=== PATIENT | male | born 1990 | race Caucasian/White ===

== ENCOUNTER 2019-01-14 19:05 | Emergency (ER) | payer OTHER, SELFPAY ==
[~2019-01-14] VITALS: Ht 180.3 cm; Wt 61.4 kg
[2019-01-14] MEDS ORDERED: DOXY100C37 PO (20:54)
[2019-01-14 21:45] VITALS: BP 131/80
== END 2019-01-14 21:46 | disposition home or self-care (01) ==
LOC: M ED 19:05
DX: H60.13 Cellulitis of external ear, bilateral (principal); T16.9XXA Foreign body in ear, unspecified ear, initial encounter; Y92.9 Unspecified place or not applicable; Y93.9 Activity, unspecified; Z72.0 Tobacco use; Z88.2 Allergy status to sulfonamides

== ENCOUNTER 2019-04-07 15:49 | Emergency (ER) | payer SELFPAY ==
[~2019-04-07] VITALS: Ht 180.3 cm; Wt 61.4 kg
[~2019-04-07 15:49] MED LIST: DOXY100C37 PO
[2019-04-07 16:51] LABS: BASO # 0.1 10^3/uL (0.0-0.2); BASO % 0.7 % (0.0-1.0); EOS # 0.2 10^3/uL (0.0-0.50); EOS % 2.5 % (0.0-3.0); HEMATOCRIT 46.9 % (42.0-52.0); HEMOGLOBIN 16.5 g/dl (13.5-17.5); LYMPH # 2.2 10^3/uL (1.5-6.5); LYMPH % 26.7 % (24.0-44.0); MEAN CORPUSCULAR HEMOGLOBIN 32.6 pg (27.0-33.0); MEAN CORPUSCULAR HGB CONC 35.2 g/dl (32.0-36.5); MEAN CORPUSCULAR VOLUME 92.7 fl (80.0-96.0); MONO # 0.6 10^3/uL (0.0-0.8); MONO % 7.7 % (0.0-5.0); PLATELET COUNT, AUTOMATED 233 10^3/uL (150-450); RED BLOOD COUNT 5.06 10^6/uL (4.30-6.10); WHITE BLOOD COUNT 8.1 10^3/uL (4.0-10.0)
[2019-04-07 17:11] LABS: BILIRUBIN,DIRECT 0.3 MG/DL (0.0-0.2); TOTAL PROTEIN 7.5 GM/DL (6.4-8.2)
[2019-04-07] MEDS ORDERED: ISOVUE-370 76% 100ML VIAL (Q9967) As Ordered ONE (17:13)
[2019-04-07] MEDS ORDERED: GI COCKTAIL 50ML BTL(HYOSCYAMINE/MAALOX/LIDOCAINE VISCOUS)(1:3:1) PO ONE (18:00)
--- NOTE | 2019-04-07 18:31 | REPVR ---
EXAM: CT Abdomen and Pelvis With Contrast EXAM DATE/TIME: 04/07/2019 5:29 PM CLINICAL HISTORY: 29 years old, male; Abdominal pain; Generalized; Additional info: Left sided abdominal pain; R/O colitis TECHNIQUE: Imaging protocol: Axial computed tomography images of the abdomen and pelvis with intravenous contrast. Coronal and sagittal reformatted images were created and reviewed. Radiation optimization: All CT scans at this facility use at least one of these dose optimization techniques: automated exposure control; mA and/or kV adjustment per patient size (includes targeted exams where dose is matched to clinical indication); or iterative reconstruction. Contrast material: ISOVUE 370;Contrast volume: 100 ml;Contrast route: IV; COMPARISON: No relevant prior studies available. FINDINGS: Mediastinum: Small hiatal hernia. Liver: Unremarkable. Gallbladder and bile ducts: No radiodense gallstones. No biliary ductal dilatation. Pancreas: Unremarkable. Spleen: Unremarkable. Adrenals: Unremarkable. Kidneys and ureters: No mass. No radiodense calculi. No hydronephrosis. Stomach and bowel: Large duodenal diverticulum. Submucosal fat deposition in the terminal ileum and colon, consistent with chronic inflammation. Mild superimposed bowel wall thickening cannot be excluded. No obstruction. No pneumatosis. Appendix: Normal. Intraperitoneal space: No free fluid. No organized fluid collection. No free air. Vasculature: Unremarkable. No aneurysm. Lymph nodes: Small mesenteric lymph nodes, likely reactive. No pathologically enlarged lymph nodes. Bladder: Unremarkable. Reproductive: Unremarkable. Bones/joints: No acute osseous abnormality. Soft tissues: Bilateral Bochdalek hernias. IMPRESSION: 1. Findings compatible with chronic enterocolitis, as described above. Mild superimposed acute component cannot be excluded. 2. Additional findings, as above. Electronically signed by: Jacob Hardwick On 04/07/2019 18:31:06 PM
[2019-04-07] MEDS ORDERED: PRED10TA2 PO (18:41)
[2019-04-07 18:50] VITALS: BP 137/71
== END 2019-04-07 18:51 | disposition home or self-care (01) ==
LOC: M ED 15:49
DX: K52.9 Noninfective gastroenteritis and colitis, unspecified (principal); Z88.1 Allergy status to other antibiotic agents; Z88.2 Allergy status to sulfonamides; F17.210 Nicotine dependence, cigarettes, uncomplicated
CPT/HCPCS: 36415; 74177; 80047; 80076; 83690; 85025; 99284; Q9967

== ENCOUNTER 2019-06-08 12:22 | Emergency (ER) | payer SELFPAY ==
[~2019-06-08] VITALS: Ht 180.3 cm; Wt 63.2 kg
[~2019-06-08 12:22] MED LIST changes: +PRED10TA2 PO
[2019-06-08 13:55] LABS: INFLUENZA A AMPLIFICATION NEGATIVE (NEGATIVE); INFLUENZA B AMPLIFICATION NEGATIVE (NEGATIVE)
[2019-06-08 14:28] VITALS: BP 131/71
== END 2019-06-08 14:32 | disposition home or self-care (01) ==
LOC: M ED 12:22
DX: J06.9 Acute upper respiratory infection, unspecified (principal); Z88.2 Allergy status to sulfonamides; K50.90 Crohn's disease, unspecified, without complications; F17.200 Nicotine dependence, unspecified, uncomplicated

== ENCOUNTER 2019-11-27 23:04 | Emergency (ER) | payer OTHER, SELFPAY ==
[2019-11-27] MEDS ORDERED: COMBIVENT RESPIMAT 100-20MCG INHALER 4GM INH ONE (23:15)
[2019-11-27 23:24] LABS: VENOUS BASE EXCESS -1.5 (-2.0-2.0); VENOUS HCO3 24.4 MEQ/L (23.0-27.0); VENOUS O2 SATURATION 82.5 % (60.0-80.0); VENOUS PARTIAL PRESSURE CO2 45.5 mmHg (38.0-50.0); VENOUS PARTIAL PRESSURE O2 46.6 mmHg (30.0-50.0); VENOUS PH 7.348 UNITS (7.330-7.430); VENOUS STANDARD HCO3 22.8 MEQ/L; VENOUS TOTAL CO2 25.8 MEQ/L (24.0-28.0)
[2019-11-27 23:29] LABS: BASO # 0.1 10^3/uL (0.0-0.2); BASO % 0.6 % (0.0-1.0); EOS # 0.2 10^3/uL (0.0-0.5); EOS % 1.7 % (0.0-3.0); HEMATOCRIT 49.4 % (42.0-52.0); LYMPH # 1.5 10^3/uL (1.5-5.0); LYMPH % 16.8 % (24.0-44.0); MEAN CORPUSCULAR HEMOGLOBIN 31.9 pg (27.0-33.0); MEAN CORPUSCULAR HGB CONC 34.4 g/dl (32.0-36.5); MEAN CORPUSCULAR VOLUME 92.7 fl (80.0-96.0); MONO # 0.4 10^3/uL (0.0-0.8); NEUTROPHILS # 6.5 10^3/uL (1.5-8.5); NEUTROPHILS % 75.6 % (36.0-66.0); PLATELET COUNT, AUTOMATED 244 10^3/uL (150-450); RED BLOOD COUNT 5.33 10^6/uL (4.30-6.10); WHITE BLOOD COUNT 8.7 10^3/uL (4.0-10.0)
[2019-11-27 23:51] LABS: BLOOD UREA NITROGEN 7 MG/DL (7-18); CALCIUM LEVEL 9.1 MG/DL (8.5-10.1); CARBON DIOXIDE LEVEL 28 MEQ/L (21-32); CHLORIDE LEVEL 106 MEQ/L (98-107); CREATININE FOR GFR 0.86 MG/DL (0.70-1.30); GLOMERULAR FILTRATION RATE > 60.0 (>60); GLUCOSE, FASTING 119 MG/DL (70-100); POTASSIUM SERUM 3.8 MEQ/L (3.5-5.1); SODIUM LEVEL 142 MEQ/L (136-145)
[2019-11-28 00:42] VITALS: BP 109/74
--- NOTE | 2019-11-28 09:14 | REP ---
Clinical: Cough and dyspnea . Comparison: None . Findings: The mediastinum and cardiac silhouette are stable and within normal limits for portable technique. The lung marrero are clear without acute consolidation, effusion, or pneumothorax. Skeletal structures are intact. Impression: No acute cardiopulmonary process appreciated. Electronically Signed by Bharat Burrows MD 11/28/2019 09:06 A
== END 2019-11-28 01:03 | disposition home or self-care (01) ==
LOC: M ED 23:04
DX: B34.9 Viral infection, unspecified (principal); Z88.2 Allergy status to sulfonamides

== ENCOUNTER 2019-12-28 14:49 | Emergency (ER) | payer OTHER ==
[~2019-12-28] VITALS: Ht 180.3 cm; Wt 62.9 kg
[2019-12-28] MEDS ORDERED: NS 1,000 ML IV ONE (15:15)
[2019-12-28 16:55] LABS: BASO # 0.1 10^3/uL (0.0-0.2); BASO % 0.8 % (0.0-1.0); EOS # 0.1 10^3/uL (0.0-0.5); EOS % 1.4 % (0.0-3.0); HEMATOCRIT 41.8 % (42.0-52.0); HEMOGLOBIN 14.4 g/dl (13.5-17.5); LYMPH # 1.3 10^3/uL (1.5-5.0); LYMPH % 19.7 % (24.0-44.0); MEAN CORPUSCULAR HEMOGLOBIN 32.4 pg (27.0-33.0); MEAN CORPUSCULAR HGB CONC 34.4 g/dl (32.0-36.5); MEAN CORPUSCULAR VOLUME 93.9 fl (80.0-96.0); MONO # 0.5 10^3/uL (0.0-0.8); NEUTROPHILS # 4.4 10^3/uL (1.5-8.5); NEUTROPHILS % 69.6 % (36.0-66.0); PLATELET COUNT, AUTOMATED 194 10^3/uL (150-450); RED BLOOD COUNT 4.45 10^6/uL (4.30-6.10); WHITE BLOOD COUNT 6.4 10^3/uL (4.0-10.0)
[2019-12-28 16:56] LABS: ALBUMIN 3.8 GM/DL (3.2-5.2); ALT/SGPT 26 U/L (12-78); BILIRUBIN,DIRECT 0.2 MG/DL (0.0-0.2); BILIRUBIN,TOTAL 0.9 MG/DL (0.2-1.0); BLOOD UREA NITROGEN 13 MG/DL (7-18); CALCIUM LEVEL 8.8 MG/DL (8.5-10.1); CARBON DIOXIDE LEVEL 27 MEQ/L (21-32); CHLORIDE LEVEL 107 MEQ/L (98-107); GLOMERULAR FILTRATION RATE > 60.0 (>60); GLUCOSE, FASTING 86 MG/DL (70-100); SODIUM LEVEL 141 MEQ/L (136-145); THYROID STIMULATING HORMONE 0.979 uIU/ML (0.358-3.740); TOTAL PROTEIN 7.1 GM/DL (6.4-8.2)
[2019-12-28 17:47] VITALS: BP 139/75
--- NOTE | 2019-12-28 22:20 | ECGEPIP ---
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
--- NOTE | 2019-12-29 01:32 | REP ---
CHEST PORTABLE: REASON: Cough and dyspnea. COMPARISON EXAM: 11/27/2019 FINDINGS: The technique utilized in obtaining the radiograph has magnified the cardiac silhouette and accentuated the interstitial markings. The superior mediastinal structures are midline. The cardiac silhouette is unremarkable in size, shape, and position. The diaphragmatic surfaces of the lungs are regular, and the costophrenic angles are clear. The pulmonary marrero are clear. The imaged osseous structures are intact. IMPRESSION: There is no acute cardiopulmonary disease. No significant change from the prior exam. Electronically Signed by Yehuda Sanchez DO 12/29/2019 07:57 A
== END 2019-12-28 17:57 | disposition home or self-care (01) ==
LOC: M ED 14:49
DX: J06.9 Acute upper respiratory infection, unspecified (principal); R50.9 Fever, unspecified; R06.02 Shortness of breath; F17.200 Nicotine dependence, unspecified, uncomplicated; Z88.2 Allergy status to sulfonamides; Z20.828 Contact with and (suspected) exposure to other viral communicable diseases
CPT/HCPCS: 71045; 80048; 80076; 84443; 85025; 87486; 87581; 87633; 87798; 93005; 93041; 94760; 96360; 99284; U0002

== ENCOUNTER 2020-01-23 16:50 | Emergency (ER) | payer OTHER ==
[~2020-01-23] VITALS: Ht 180.3 cm; Wt 61.8 kg
[2020-01-23] MEDS ORDERED: MULTIVITAMIN -ADULT INJECTION 10 ML, THIAMINE INJection 100 MG, FOLIC ACID 1 MG in NS 1... IV ONE (17:30)
[2020-01-23] MEDS ORDERED: PANTOPRAZOLE 40MG VIAL (C9113 PER 1) IV ONE (17:30)
[2020-01-23 17:46] LABS: BASO # 0.1 10^3/uL (0.0-0.2); BASO % 0.6 % (0.0-1.0); EOS # 0.1 10^3/uL (0.0-0.5); EOS % 0.6 % (0.0-3.0); HEMATOCRIT 50.4 % (42.0-52.0); HEMOGLOBIN 17.6 g/dl (13.5-17.5); LYMPH # 1.4 10^3/uL (1.5-5.0); LYMPH % 11.6 % (24.0-44.0); MEAN CORPUSCULAR HEMOGLOBIN 32.4 pg (27.0-33.0); MEAN CORPUSCULAR HGB CONC 34.9 g/dl (32.0-36.5); MEAN CORPUSCULAR VOLUME 92.8 fl (80.0-96.0); MONO # 0.6 10^3/uL (0.0-0.8); MONO % 5.5 % (0.0-5.0); NEUTROPHILS # 9.5 10^3/uL (1.5-8.5); NEUTROPHILS % 81.3 % (36.0-66.0); PLATELET COUNT, AUTOMATED 250 10^3/uL (150-450); RED BLOOD COUNT 5.43 10^6/uL (4.30-6.10); WHITE BLOOD COUNT 11.6 10^3/uL (4.0-10.0)
[2020-01-23 17:59] LABS: INR 1.05; PROTHROMBIN TIME 13.4 SECONDS (11.8-14.0)
[2020-01-23 18:00] LABS: PARTIAL THROMBOPLASTIN TIME 28.8 SECONDS (25.0-38.4)
[2020-01-23 18:18] LABS: ALBUMIN 4.4 GM/DL (3.2-5.2); ALT/SGPT 36 U/L (12-78); BILIRUBIN,DIRECT 0.3 MG/DL (0.0-0.2); BILIRUBIN,TOTAL 1.1 MG/DL (0.2-1.0); CK-MB VALUE MASS < 1.0 NG/ML (<3.6); CPK CREATINE PHOSPHOKINASE 50 U/L (39-308); FREE T4 1.04 NG/DL (0.76-1.46); LIPASE 86 U/L (73-393); TOTAL PROTEIN 8.2 GM/DL (6.4-8.2); TROPONIN I < 0.02 NG/ML (< 0.10)
--- NOTE | 2020-01-23 18:25 | REP ---
Clinical: Acute chest pain . Comparison: 12/28/2019 . Technique: PA and lateral. Findings: The mediastinum and cardiac silhouette are normal. The lung marrero are clear and without acute consolidation, effusion, or pneumothorax. The skeletal structures are intact and normal. Impression: 1. No acute cardiopulmonary process. Electronically Signed by Bharat Burrows MD 01/23/2020 06:17 P
[2020-01-23 18:27] LABS: D-DIMER QUANT < 270 ng/ml (<500)
[2020-01-23] MEDS ORDERED: KETOROLAC 30 MG/ML 1ML VIAL IV ONE (18:45)
[2020-01-23] MEDS ORDERED: IBUP80TA PO (20:14)
[2020-01-23 20:18] VITALS: BP 121/72
--- NOTE | 2020-01-24 08:10 | ECGEPIP ---
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
== END 2020-01-23 20:22 | disposition home or self-care (01) ==
LOC: M ED 16:50
DX: R07.89 Other chest pain (principal); I44.0 Atrioventricular block, first degree; I45.10 Unspecified right bundle-branch block; K50.90 Crohn's disease, unspecified, without complications; Z88.2 Allergy status to sulfonamides; F17.210 Nicotine dependence, cigarettes, uncomplicated
CPT/HCPCS: 71046; 80047; 80076; 82550; 82553; 83690; 84439; 84443; 85025; 85379; 85610; 85730; 93005; 96361; 96374; 96375; 99284; C9113; J1885; J3411

== ENCOUNTER 2020-02-07 15:28 | Emergency (ER) | payer OTHER ==
[~2020-02-07] VITALS: Ht 180.3 cm; Wt 61.4 kg
[~2020-02-07 15:28] MED LIST changes: +IBUP80TA PO
[2020-02-07] MEDS ORDERED: NS 1,000 ML IV ONE (15:45)
--- NOTE | 2020-02-07 16:00 | REP ---
Clinical: Possible acute cerebrovascular accident . Comparison: None. Technique: Axial noncontrast images from the skull base to the vertex with coronal re-formations. Findings: The ventricles, sulci, and cisterns are normal in position and appearance. Agudelo-white differentiation is maintained. No acute intracranial hemorrhage, mass/mass effect, pathology or trauma/injury. No evidence for acute infarction. No extra-axial fluid collection. Calvarium is intact. Paranasal sinuses and mastoid air cells are clear. Impression: Normal noncontrast head CT. No evidence for acute intracranial pathology or trauma/injury. Electronically Signed by Bharat Burrows MD 02/07/2020 03:52 P
[2020-02-07 16:02] VITALS: BP 132/84
[2020-02-07 16:06] LABS: BASO # 0.1 10^3/uL (0.0-0.2); BASO % 0.4 % (0.0-1.0); EOS % 0.1 % (0.0-3.0); HEMATOCRIT 49.8 % (42.0-52.0); HEMOGLOBIN 17.4 g/dl (13.5-17.5); LYMPH # 1.2 10^3/uL (1.5-5.0); LYMPH % 7.8 % (24.0-44.0); MEAN CORPUSCULAR HEMOGLOBIN 32.3 pg (27.0-33.0); MEAN CORPUSCULAR HGB CONC 34.9 g/dl (32.0-36.5); MEAN CORPUSCULAR VOLUME 92.4 fl (80.0-96.0); MONO # 0.5 10^3/uL (0.0-0.8); MONO % 3.6 % (0.0-5.0); NEUTROPHILS # 13.3 10^3/uL (1.5-8.5); NEUTROPHILS % 87.7 % (36.0-66.0); PLATELET COUNT, AUTOMATED 295 10^3/uL (150-450); RED BLOOD COUNT 5.39 10^6/uL (4.30-6.10); WHITE BLOOD COUNT 15.1 10^3/uL (4.0-10.0)
[2020-02-07 16:15] VITALS: BP 127/82
[2020-02-07 16:15] LABS: INR 1.05; PROTHROMBIN TIME 13.4 SECONDS (11.8-14.0)
[2020-02-07 16:16] LABS: PARTIAL THROMBOPLASTIN TIME 31.3 SECONDS (25.0-38.4)
[2020-02-07 16:30] VITALS: BP 123/81
[2020-02-07 16:45] VITALS: BP 124/79
[2020-02-07 16:54] LABS: ACETAMINOPHEN LEVEL < 2.0 UG/ML (10.0-30.0); ALBUMIN 4.2 GM/DL (3.2-5.2); ALT/SGPT 32 U/L (12-78); BILIRUBIN,DIRECT 0.2 MG/DL (0.0-0.2); BILIRUBIN,TOTAL 0.6 MG/DL (0.2-1.0); CK-MB VALUE MASS < 1.0 NG/ML (<3.6); CPK CREATINE PHOSPHOKINASE 152 U/L (39-308); ETHYL ALCOHOL (ETHANOL) < 0.003 % (0.000-0.010); MAGNESIUM LEVEL 1.7 MG/DL (1.8-2.4); MB/CK RELATIVE INDEX 0.66 (< OR =4); SALICYLATE LEVEL < 1.7 MG/DL (5.0-30.0); THYROID STIMULATING HORMONE 0.603 uIU/ML (0.358-3.740); TOTAL PROTEIN 7.7 GM/DL (6.4-8.2); TROPONIN I < 0.02 NG/ML (< 0.10)
[2020-02-07] MEDS ORDERED: MAG SULF 1GM/100ML (MAG RUN) 1 GM in IV 1 EA IV ONE (17:00)
[2020-02-07] MEDS ORDERED: ONDANSETRON 4MG/2ML VIAL As Ordered ONE (17:14)
[2020-02-07] MEDS ORDERED: ONDANSETRON 4MG/2ML VIAL IV ONE (17:15)
[2020-02-07 17:30] LABS: AMPHETAMINES LEVEL URINE NEGATIVE (NEGATIVE); BARBITURATES URINE NEGATIVE (NEGATIVE); BENZODIAZEPINES URINE NEGATIVE (NEGATIVE); CANNABINOIDS URINE NEGATIVE (NEGATIVE); COCAINE METABOLITE URINE POSITIVE (NEGATIVE); METHADONE URINE NEGATIVE (NEGATIVE); OPIATES URINE NEGATIVE (NEGATIVE); PHENCYCLIDINE URINE NEGATIVE (NEGATIVE)
[2020-02-07] MEDS ORDERED: ACETAMINOPHEN TAB 650MG DOSE (2X325MG) PO ONE (17:30)
[2020-02-07] MEDS ORDERED: ESSE250T PO (17:36)
[2020-02-07 18:30] VITALS: BP 117/67
--- NOTE | 2020-02-07 19:20 | ECGEPIP ---
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
--- NOTE | 2020-02-08 13:15 | REP ---
CHEST: REASON: Strokelike symptoms. COMPARISON: Multiple, latest 01/23/2020. Preliminary report given by Dr. Burrows. The technique utilized in obtaining the radiograph has magnified the cardiac silhouette and accentuated the interstitial markings. FINDINGS: The superior mediastinal structures are midline. The cardiac silhouette is unremarkable in size, shape, and position. The diaphragmatic surfaces of the lungs are regular, and the costophrenic angles are clear. The pulmonary marrero are clear. The imaged osseous structures are intact. IMPRESSION: There is no acute cardiopulmonary disease. Electronically Signed by Yehuda Sanchez DO 02/08/2020 03:18 P
== END 2020-02-07 18:43 | disposition home or self-care (01) ==
LOC: M ED 15:28 → EDBD 15:28 → M ED 18:43
DX: R20.2 Paresthesia of skin (principal); E83.42 Hypomagnesemia; M19.011 Primary osteoarthritis, right shoulder; F17.200 Nicotine dependence, unspecified, uncomplicated; F19.10 Other psychoactive substance abuse, uncomplicated
CPT/HCPCS: 36415; 70450; 71045; 80047; 80076; 80307; 82330; 82550; 82553; 83735; 84443; 85025; 85610; 85730; 86850; 86900; 86901; 93005; 93041; 94760; 96361; 96365; 96366; 96375; 99285; G0480; J2405; J3475

== ENCOUNTER → 2020-04-07 | Emergency (ER) | payer OTHER ==
[~2020-04-07] MED LIST changes: +ESSE250T PO
[2020-05-06 22:45] LABS: BASO % 0.4 % (0.0-1.0); EOS # 0.1 10^3/uL (0.0-0.5); EOS % 0.5 % (0.0-3.0); HEMATOCRIT 52.8 % (42.0-52.0); HEMOGLOBIN 18.1 g/dl (13.5-17.5); LYMPH # 1.9 10^3/uL (1.5-5.0); MEAN CORPUSCULAR HEMOGLOBIN 32.6 pg (27.0-33.0); MEAN CORPUSCULAR HGB CONC 34.3 g/dl (32.0-36.5); MEAN CORPUSCULAR VOLUME 95.1 fl (80.0-96.0); MONO # 0.6 10^3/uL (0.0-0.8); MONO % 5.4 % (0.0-5.0); NEUTROPHILS # 7.8 10^3/uL (1.5-8.5); NEUTROPHILS % 75.3 % (36.0-66.0); PLATELET COUNT, AUTOMATED 265 10^3/uL (150-450); RED BLOOD COUNT 5.55 10^6/uL (4.30-6.10); WHITE BLOOD COUNT 10.4 10^3/uL (4.0-10.0)
--- NOTE | 2020-05-18 11:18 | ECGEPIP ---
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
[2020-05-21 19:06] LABS: ALBUMIN 4.5 GM/DL (3.2-5.2); ALT/SGPT 24 U/L (12-78); BILIRUBIN,DIRECT 0.2 MG/DL (0.0-0.2); BILIRUBIN,TOTAL 0.6 MG/DL (0.2-1.0); BLOOD UREA NITROGEN 8 MG/DL (7-18); CALCIUM LEVEL 9.4 MG/DL (8.5-10.1); CARBON DIOXIDE LEVEL 31 MEQ/L (21-32); CHLORIDE LEVEL 107 MEQ/L (98-107); CK-MB VALUE MASS < 1.0 NG/ML (<3.6); CPK CREATINE PHOSPHOKINASE 69 U/L (39-308); CREATININE FOR GFR 0.87 MG/DL (0.70-1.30); FREE T4 1.13 NG/DL (0.76-1.46); GLOMERULAR FILTRATION RATE > 60.0 (>60); GLUCOSE, FASTING 92 MG/DL (70-100); LIPASE 98 U/L (73-393); MB/CK RELATIVE INDEX 1.45 (< OR =4); POTASSIUM SERUM 4.4 MEQ/L (3.5-5.1); SODIUM LEVEL 142 MEQ/L (136-145); THYROID STIMULATING HORMONE 0.679 uIU/ML (0.358-3.740); TOTAL PROTEIN 8.1 GM/DL (6.4-8.2); TROPONIN I < 0.02 NG/ML (< 0.10)
== END | disposition home or self-care (01) ==
LOC: M ED 11:53
DX: R07.9 Chest pain, unspecified (principal); R11.0 Nausea; R05 Cough; Z53.20 Procedure and treatment not carried out because of patient's decision for unspecified reasons; F17.210 Nicotine dependence, cigarettes, uncomplicated; Z88.2 Allergy status to sulfonamides

== ENCOUNTER → 2020-05-19 | Outpatient (REF) | payer OTHER | LOC: M LAB REF 21:52 | PROVIDERS: ATTEND Physician Assistant | DX: Z20.828 Contact with and (suspected) exposure to other viral communicable diseases (principal) ==

== ENCOUNTER 2020-05-21 08:38 | Emergency (ER) | payer OTHER ==
[~2020-05-21] VITALS: Ht 182.9 cm; Wt 59.3 kg
[2020-05-21] MEDS ORDERED: NS 1,000 ML IV ONE (09:30)
[2020-05-21] MEDS ORDERED: ACETAMINOPHEN 500 MG TAB PO ONE (09:30)
[2020-05-21] MEDS ORDERED: KETOROLAC 30 MG/ML 1ML VIAL IV ONE (09:30)
[2020-05-21] MEDS ORDERED: METOCLOPRAMIDE INJ 10MG/2ML VIAL (J2765 PER 1) IV ONE (09:30)
[2020-05-21 09:41] VITALS: BP 116/68
== END 2020-05-21 11:13 | disposition home or self-care (01) ==
LOC: M ED 08:38
DX: B34.9 Viral infection, unspecified (principal); F17.200 Nicotine dependence, unspecified, uncomplicated; Z88.2 Allergy status to sulfonamides
CPT/HCPCS: 96361; 96374; 96375; 99284; J1885; J2765

== ENCOUNTER 2020-10-25 13:52 | Emergency (ER) | payer OTHER ==
[~2020-10-25] VITALS: Ht 180.3 cm; Wt 59.5 kg
--- OUTSIDE RECORDS SUMMARY | 2020-10-25 14:05 | CCD ---
Author Author [facility] Organization [facility] Address Unknown Phone Unavailable Care Team Providers Care Seismograph Computer Name Role Phone Barraclough, Vinita PA Unavailable Unavailable Barraclough, Vinita PA Unavailable Unavailable Barraclough, Vinita PA Unavailable Unavailable Barraclough, Vinita PA Unavailable Unavailable Barraclough, Vinita PA Unavailable Unavailable Barraclough, Vinita PA Unavailable Unavailable TONTARSKI, G RAJANI PA Unavailable Unavailable TONTARSKI, G RAJANI PA Unavailable Unavailable TONTARSKI, G RAJANI PA Unavailable Unavailable TONTARSKI, G RAJANI PA Unavailable Unavailable TONTARSKI, G RAJANI PA Unavailable Unavailable TONTARSKI, G RAJANI PA Unavailable Unavailable TONTARSKI, G RAJANI PA Unavailable Unavailable TONTARSKI, G RAJANI PA Unavailable Unavailable TONTARSKI, G RAJANI PA Unavailable Unavailable TONTARSKI, G RAJANI PA Unavailable Unavailable TONTARSKI, G RAJANI PA Unavailable Unavailable TONTARSKI, G RAJANI PA Unavailable Unavailable TONTARSKI, G RAJANI PA Unavailable Unavailable TONTARSKI, G RAJANI PA Unavailable Unavailable TONTARSKI, G RAJANI PA Unavailable Unavailable TONTARSKI, G RAJANI PA Unavailable Unavailable TONTARSKI, G RAJANI PA Unavailable Unavailable TONTARSKI, G RAJANI PA Unavailable Unavailable TONTARSKI, G RAJANI PA Unavailable Unavailable TONTARSKI, G RAJANI PA Unavailable Unavailable TONTARSKI, G RAJANI PA Unavailable Unavailable TONTARSKI, G RAJANI PA Unavailable Unavailable TONTARSKI, G RAJANI PA Unavailable Unavailable TONTARSKI, G RAJANI PA Unavailable Unavailable TONTARSKI, G RAJANI PA Unavailable Unavailable TONTARSKI, G RAJANI PA Unavailable Unavailable TONTARSKI, G RAJANI PA Unavailable Unavailable TONTARSKI, G RAJANI PA Unavailable Unavailable TONTARSKI, G RAJANI PA Unavailable Unavailable TONTARSKI, G RAJANI PA Unavailable Unavailable TONTARSKI, G RAJANI PA Unavailable Unavailable TONTARSKI, G RAJANI PA Unavailable Unavailable TONTARSKI, G RAJANI PA Unavailable Unavailable TONTARSKI, G RAJANI PA Unavailable Unavailable TONTARSKI, G RAJANI PA Unavailable Unavailable TONTARSKI, G RAJANI PA Unavailable Unavailable TONTARSKI, G RAJANI PA Unavailable Unavailable TONTARSKI, G RAJANI PA Unavailable Unavailable TONTARSKI, G RAJANI PA Unavailable Unavailable TONTARSKI, G RAJANI PA Unavailable Unavailable TONTARSKI, G RAJANI PA Unavailable Unavailable TONTARSKI, G RAJANI PA Unavailable Unavailable TONTARSKI, G RAJANI PA Unavailable Unavailable TONTARSKI, G RAJANI PA Unavailable Unavailable TONTARSKI, G RAJANI PA Unavailable Unavailable TONTARSKI, G RAJANI PA Unavailable Unavailable TONTARSKI, G RAJANI PA Unavailable Unavailable TONTARSKI, G RAJANI PA Unavailable Unavailable Re-disclosure Warning The records that you are about to access may contain information from federally-assisted alcohol or drug abuse programs. If such information is present, then the following federally mandated warning applies: This information has been disclosed to you from records protected by federal confidentiality rules (42 CFR part 2). The federal rules prohibit you from making any further disclosure of this information unless further disclosure is expressly permitted by the written consent of the person to whom it pertains or as otherwise permitted by 42 CFR part 2. A general authorization for the release of medical or other information is NOT sufficient for this purpose. The Federal rules restrict any use of the information to criminally investigate or prosecute any alcohol or drug abuse patient.The records that you are about to access may contain highly sensitive health information, the redisclosure of which is protected by Article 27-F of the [facility] Public Health law. If you continue you may have access to information: Regarding HIV / AIDS; Provided by facilities licensed or operated by the [facility] Office of Mental Health; or Provided by the [facility] Office for People With Developmental Disabilities. If such information is present, then the following [facility] mandated warning applies: This information has been disclosed to you from confidential records which are protected by state law. State law prohibits you from making any further disclosure of this information without the specific written consent of the person to whom it pertains, or as otherwise permitted by law. Any unauthorized further disclosure in violation of state law may result in a fine or senior care sentence or both. A general authorization for the release of medical or other information is NOT sufficient authorization for further disc losure. Family History Family Member Name Family Member Gender Family Member Status Date o f Status Description Data Source(s) Unknown Female Problem [facility] ([facility]) Encounters Encounter Providers Location Date Indications Data Source(s ) Outpatient Attender: Vinita Cuba ce 06/09/2020 01:00:00 PM EDT [facility] ([facility] Outpatient Attender: Vinita ambrose 05/26/2020 02:00:00 PM EDT [facility] ([facility] Outpatient Referrer: RAJANI VANG 02/25/2020 05: 55:00 AM EDT [facility] Outpatient Referrer: RAJANI VANG 2020 05: 18:00 AM EDT [facility] Outpatient Referrer: RAJANI VANG 01/13/2020 05: 51:00 AM EDT [facility] Outpatient Attender: Vinita Cuba ce 11/16/2019 02:00:00 PM EDT [facility] ([facility] Medications Medication Brand Name Start Date Product Form Dose Route Admi nistrative Instructions Pharmacy Instructions Status Indications Reaction Description Data Source(s) Omeprazole 40 MG Delayed Release Oral Capsule Omeprazole 06/09/2020 12:00:00 AM EDT ORAL active [facility] ([facility] 100,000 unit/mL 05/26/2020 12:00:00 AM EDT suspension 60 SWISH 5ML BY MOUTH FOR LONG POSSIBLE THEN SWALLOW - REPEAT FOUR TIMES A DAY FOR 7 DAYS SWISH 5ML BY MOUTH FOR LONG POSSIBLE THEN SWALLOW - REPEAT FOUR TIMES A DAY FOR 7 DAYS SOLD: 05/26/2020 [facility] Nystatin 904651 UNT/ML Oral Suspension Nystatin 05/26/2020 12:00:00 AM EDT completed [facility] ([facility] 100,000 unit/mL 05/26/2020 12:00:00 AM EDT suspension 80 SWISH 5ML BY MOUTH FOR LONG POSSIBLE THEN SWALLOW - REPEAT FOUR TIMES A DAY FOR 7 DAYS SWISH 5ML BY MOUTH FOR LONG POSSIBLE THEN SWALLOW - REPEAT FOUR TIMES A DAY FOR 7 DAYS SOLD: 05/30/2020 [facility] 800 mg 05/20/2020 12:00:00 AM EDT tablet 30 TAKE ONE TABLET BY MOUTH THREE TIMES A DAY FOR 10 DAYS TAKE ONE TABLET BY MOUTH THREE TIMES A DAY FOR 10 DAYS SOLD: 05/22/2020 [facility] meloxicam 7.5 MG Oral Tablet MELOXICAM 02/11/2020 12:00:00 AM EDT tabl et 30 TAKE ONE TABLET BY MOUTH TWICE A DAY TAKE ONE TABLET BY MOUTH TWICE A DAY SOLD: 02/12/2020 [facility] 800 mg 01/24/2020 12:00:00 AM EDT tablet 30 TAKE ONE TABLET BY MOUTH THREE TIMES A DAY TAKE ONE TABLET BY MOUTH THREE TIMES A DAY SOLD: 01/24/2020 [facility] 300 mg 11/30/2019 12:00:00 AM EDT capsule 20 TAKE ONE CAPSULE BY MOUTH EVERY 12 HOURS FOR 10 DAYS TAKE ONE CAPSULE BY MOUTH EVERY 12 HOURS FOR 10 DAYS S OLD: 11/30/2019 [facility] 40 mg 11/17/2019 12:00:00 AM EDT capsule,delayed release (DR/EC) 30 TAKE 1 CAPSULE BY MOUTH ONCE DAILY TAKE 1 CAPSULE BY MOUTH ONCE DAILY SOLD: 11/17/2019 [facility] 500 mg 11/07/2019 12:00:00 AM EST tablet 20 TAKE ONE TABLET BY MOUTH EVERY 12 HOURS NEEDED FOR 10 DAYS TAKE ONE TABLET BY MOUTH EVERY 12 HOURS NEEDED FOR 10 DAYS SOLD: 11/07/2019 [facility] 10 mg 11/07/2019 12:00:00 AM EST tablet 14 TAKE ONE TABLET BY MOUTH TWO TIMES A DAY NEEDED FOR 7 DAYS TAKE ONE TABLET BY MOUTH TWO TIMES A DAY NEEDED FOR 7 DAYS SOLD: 11/07/2019 [facility] Insurance Providers Payer name Policy type / Coverage type Policy ID Covered green party ID Covered green party's relationship to xiao Policy Xiao Plan Information [facility] COMMUNITY PLAN [facility] [id number] SP [id number] [facility](MCAID) O [id number] S [id number] [facility] COMMUNITY PLAN [facility] [id number] SP [id number] SELF PAY ONLY [id number] SP [id number] [facility] COMMUNITY PLAN XIX [id number] [facility] COMMUNITY PLAN [facility] [id number] SP [id number] [facility] Community Plan Commercial [id number] Self [id number] [place] Medig[place] Part B Self [facility] Community Plan Commercial Self [facility](MCAID) O [id number] S [id number] [facility] [id number] SP [id number] MEDICAID UNAVAILABLE UNAVAILA BLE [facility] COMMUNITY PLAN [facility] [id number] SP [id number] MEDICAID [id number] SP [id number] SELF PAY UNAVAILABLE SP UNAVAILA BLE Problems, Conditions, and Diagnoses Code Display Name Description Problem Type Effective Dates Data Source(s) [id number] Gastroesophageal reflux disease Gastroesophageal reflux disease Problem 11/19/2019 12:00:00 AM EDT [facility] Results ID Date Data Source [id number] 06/09/2020 01:25:00 PM EDT [facility] Name Value Range Interpretation Code Description Data Mandie rce(s) Supporting Document(s) Gamma glutamyl transferase [Enzymatic activity/volume] in Serum or Plasma 102 IU/L 0-65 Above high normal [facility] ([facility] ID Date Data Source [id number] 06/09/2020 01:25:00 PM EDT [facility] ([facility] Name Value Range Interpretation Code Description Data Mandie rce(s) Supporting Document(s) Hepatitis A virus IgM Ab [Presence] in Serum or Plasma by Immunoassay Laboratory test result [facility] ([facility] Hep B Core Ab, IgM Laboratory test result [facility] ([facility] Hepatitis C virus Ab Signal/Cutoff in Serum or Plasma by Immunoassay Laboratory test result 0.0-0.9 [facility] ([facility] <content>Negative: < 0.8</content><b r/><content>Indeterminate: 0.8 - 0.9</content>
<content>Positive: > 0.9</content>
<content>The CDC recommends that a positive HCV antibody result</content>
<content>be followed up with a HCV Nucleic Acid Amplification</content>
<content>test ([id number]).</content>
<content></content> Hepatitis B virus surface Ag [Presence] in Serum or Pl asma by Immunoassay Laboratory test result [facility] (On [facility] of [facility] ID Date Data Source [id number] 05/26/2020 02:35:00 PM EDT [facility] ([facility] Name Value Range Interpretation Code Description Data Mandie rce(s) Supporting Document(s) Written Authorization Laboratory test result [facility] ([facility] No Written Authorization Received. Request Problem Laboratory test result [facility] ([facility] We have received your request for additi onal testing, however we are unable to add the test you requested. The following test(s) were not performed: Quantity was not sufficient for analysis. TEST: [id number] Hepatitis Panel (4) ID Date Data Source [id number] 05/26/2020 02:35:00 PM EDT [facility] ([facility] Name Value Range Interpretation Code Description Data Mandie rce(s) Supporting Document(s) Hepatitis A virus IgM Ab [Presence] in Serum or Plasma by Immunoassay Laboratory test result [facility] ([facility] We have received your request for additi onal testing, however we are unable to add the test you requested. The following test(s) were not performed: Quantity was not sufficient for analysis. Hepatitis B virus surface Ag [Presence] in Serum or Pl asma by Immunoassay Laboratory test result [facility] ([facility] Test not performed Hep B Core Ab, IgM Laboratory test result [facility] ([facility] Test not performed Hepatitis C virus Ab Signal/Cutoff in Serum or Plasma by Immunoassay Laboratory test result [facility] ([facility] Test not performed ID Date Data Source [id number] 05/26/2020 02:35:00 PM EDT [facility] ([facility] Name Value Range Interpretation Code Description Data Mandie rce(s) Supporting Document(s) Bilirubin.conjugated [Mass/volume] in Serum or Plasma 0.35 mg/dL 0.00 -0.40 [facility] ([facility] ID Date Data Source [id number] 05/26/2020 02:35:00 PM EDT [facility] ([facility] Name Value Range Interpretation Code Description Data Mandie rce(s) Supporting Document(s) BUN 14 mg/dL 6-20 [facility] ([facility] Glucose [Mass/volume] in Serum or Plasma 121 mg/dL 65-99 Above high normal [facility] ([facility] Creatinine [Mass/volume] in Serum or Plasma 0.85 mg/dL 0.76-1.27 [facility] ([facility] eGFR If NonAfricn Am 119 mL/min/1.73 [facility] ([facility] Sodium [Moles/volume] in Serum or Plasma 140 mmol/L 134-144 [facility] ([facility] Urea nitrogen/Creatinine [Mass Ratio] in Serum or Plasma 16 9 -20 [facility] ([facility] eGFR If Africn Am 137 mL/min/1.73 ME DENT ([facility] Chloride [Moles/volume] in Serum or Plasma 98 mmol/L 96-106 [facility] ([facility] Carbon dioxide, total [Moles/volume] in Serum or Plasma 28 mmol/L 20 -29 [facility] ([facility] Calcium [Mass/volume] in Serum or Plasma 9.0 mg/dL 8.7-10.2 [facility] ([facility] Potassium [Moles/volume] in Serum or Plasma 4.1 mmol/L 3.5-5.2 [facility] ([facility] Globulin [Mass/volume] in Serum by calculation 3.3 g/dL 1.5-4.5 [facility] ([facility] Albumin [Mass/volume] in Serum or Plasma 4.0 g/dL 4.1-5.2 Below low normal [facility] ([facility] Protein [Mass/volume] in Serum or Plasma 7.3 g/dL 6.0-8.5 [facility] ([facility] Alkaline phosphatase [Enzymatic activity/volume] in Serum or Plasma 553 IU/L 39-117 Above high normal [facility] ([facility] Bilirubin.total [Mass/volume] in Serum or Plasma 0.5 mg/dL 0.0-1.2 [facility] ([facility] Albumin/Globulin [Mass Ratio] in Serum or Plasma 1.2 1.2-2.2 [facility] ([facility] Aspartate aminotransferase [Enzymatic activity/volume] in Serum or Plasma 209 IU/L 0-40 Above high normal [facility] ([facility] Alanine aminotransferase [Enzymatic activity/volume] i n Serum or Plasma 312 IU/L 0-44 Above high normal [facility] ([facility] ID Date Data Source [id number] 05/26/2020 02:35:00 PM EDT [facility] ([facility] [place] [place] [facility] Name Value Range Interpretation Code Description Data Mandie rce(s) Supporting Document(s) Leukocytes [#/volume] in Blood by Automated count 9.3 x10E3/uL 3.4-10 .8 [facility] ([facility] Erythrocytes [#/volume] in Blood by Automated count 4.38 x10E6/uL 4.1 4-5.80 [facility] ([facility] Hemoglobin [Mass/volume] in Blood 14.1 g/dL 13.0-17.7 [facility] ([facility] Hematocrit [Volume Fraction] of Blood by Automated count 41.4 % 3 7.5-51.0 [facility] ([facility] Erythrocyte mean corpuscular hemoglobin concentration [Mass/volume] by Automated count 34.1 g/dL 31.5-35.7 [facility] ([facility] Erythrocyte mean corpuscular volume [Entitic volume] by Auto mated count 95 fL 79-97 [facility] ([facility] Erythrocyte mean corpuscular hemoglobin [Entitic mass] by Automated count 32.2 pg 26.6-33.0 [facility] ([facility] Erythrocyte distribution width [Ratio] by Automated count 14.0 % 11.6-15.4 [facility] ([facility] Lymphs 47 % [facility] Lymphocytes appear reactive. Neutrophils 41 % [facility] ([facility] Platelets [#/volume] in Blood by Automated count 242 x10E3/uL 150-450 [facility] ([facility] Monocytes/100 leukocytes in Blood by Automated count 10 % [facility] ([facility] Eosinophils/100 leukocytes in Blood by Automated count 0 % [facility] ([facility] Basophils/100 leukocytes in Blood by Automated count 1 % [facility] ([facility] Immature cells [#/volume] in Blood Laboratory test result [facility] ([facility] Neutrophils [#/volume] in Blood by Automated count 3.8 x10E3/uL 1.4-7 .0 [facility] ([facility] Eosinophils [#/volume] in Blood by Automated count 0.0 x10E3/uL 0.0-0 .4 [facility] ([facility] Lymphocytes [#/volume] in Blood 4.4 x10E3/uL 0.7-3.1 Above high no rmal [facility] ([facility] Monocytes [#/volume] in Blood 0.9 x10E3/uL 0.1-0.9 [facility] ([facility] Basophils [#/volume] in Blood by Automated count 0.1 x10E3/uL 0.0-0.2 [facility] ([facility] Immature granulocytes [#/volume] in Blood by Automated count 0.1 x10E3/uL 0.0-0.1 [facility] ([facility] Immature granulocytes/100 leukocytes in Blood by Automated count 1 % [facility] ([facility] Nucleated erythrocytes/100 leukocytes [Ratio] in Blood by Automated count Laboratory test result [facility] ([facility] Morphology [Interpretation] in Blood Narrative Laboratory test result [facility] ([facility] Verified by microscopic examination. ID Date Data Source [id number] 05/26/2020 02:35:00 PM EDT [facility] ([facility] [place] [place] [facility] Name Value Range Interpretation Code Description Data Mandie rce(s) Supporting Document(s) Request Problem Laboratory test result [facility] ([facility] We have received your request for additi onal testing, however we are unable to add the test you requested. The following test(s) were not performed: Quantity was not sufficient for analysis. TEST: [id number] Hepatitis Panel (4) ID Date Data Source [id number] 05/26/2020 02:34:00 PM EDT [facility] ([facility] Name Value Range Interpretation Code Description Data Mandie rce(s) Supporting Document(s) Color Urine Laboratory test result M EDENT ([facility] Appearance of Urine Laboratory test result [facility] ([facility] Specific Walls 1.030 1.00-1.03 [facility] ([facility] [place] [place] [facility] Bilirubin.total [Presence] in Urine by Test strip Laboratory stefania t result Above high normal [facility] ([facility] ) Ketones Laboratory test result Above high normal [facility] ([facility] Glucose Urine Laboratory test result [facility] ([facility] PH Urine 6.0 5.0-8.0 [facility] ([facility] Blood Urine Laboratory test result M EDENT ([facility] Protein Urine Laboratory test result Above high normal [facility] ([facility] Nitrite Laboratory test result [facility] ([facility] Leukocytes Laboratory test result ME DENT ([facility] Urobilinogen 2.0 EU/dl 0.2-1.0 Above high normal MEDEN T ([facility] ID Date Data Source [id number] 02/07/2020 04:58:00 PM EDT [facility] ([facility] Name Value Range Interpretation Code Description Data Mandie rce(s) Supporting Document(s) Amphetamines Level Urine Laboratory test result Normal (applies to non-numeric results) [facility] ([facility] ) Cannabinoids Urine Laboratory test result Normal (applies to non-numeric results) [facility] ([facility] ) Benzodiazepines Urine Laboratory test result Nor mal (applies to non-numeric results) [facility] ([facility] ) Barbiturates Urine Laboratory test result Normal (applies to non-numeric results) [facility] ([facility] ) Methadone Urine Laboratory test result Normal (a pplies to non-numeric results) [facility] ([facility] ) Opiates Urine Laboratory test result Normal (applies t o non-numeric results) [facility] ([facility] Cocaine Metabolite Urine Laboratory test result Above high normal [facility] ([facility] Phencyclidine Urine Laboratory test result Marie l (applies to non-numeric results) [facility] ([facility] ALL PRESUMPTIVE POSITIVE FINDINGS AR E UNCONFIRMED THRESHOLD IN NG/ML AMPHETAMINES/METHAMPHET 1000 BARBITURATES 200 BENZODIAZEPINES 200 CANNABINOIDS (THC) 50 COCAINE METABOLITE 300 METHADONE 300 OPIATES 300 PHENCYCLIDINE 25 RESULTS ARE FOR MEDICAL PURPOSES ONLY. ALL URINE SPECIMENS WILL BE SAVED FOR 3 DAYS. IF CONFIRMATION OF A PRESUMPTIVE POSITIVE SCREEN RESULT IS DESIRED, CALL CHEMISTRY ([phone]) AND REQUEST URINE TO BE SENT TO REFERENCE LAB. FOR A LIST OF CLOSELY RELATED COMPOUNDS PLEASE CALL THE LAB. ID Date Data Source [id number] 02/07/2020 04:12:00 PM EDT [facility] Name Value Range Interpretation Code Description Data Mandie rce(s) Supporting Document(s) Glucose [Mass/volume] in Capillary blood by Glucometer 78 mg/dL 70-105 Normal (applies to non-numeric results) [facility] ID Date Data Source [id number] 02/07/2020 04:11:00 PM EDT [facility] ([facility] Name Value Range Interpretation Code Description Data Mandie rce(s) Supporting Document(s) Laboratory test finding (navigational concept) 52.0 % 3 8.0-51.0 Above high normal [facility] ([facility] Laboratory test finding (navigational concept) 92 mg/dL 7 0-105 Normal (applies to non-numeric results) [facility] ([facility] Laboratory test finding (navigational concept) 141 meq/L 1 36-145 Normal (applies to non-numeric results) [facility] ([facility] Laboratory test finding (navigational concept) 3.6 meq/L 3 .5-5.1 Normal (applies to non-numeric results) [facility] ([facility] Laboratory test finding (navigational concept) 4.3 mg/dL 4 .5-5.3 Below low normal [facility] ([facility] ) Laboratory test finding (navigational concept) 101 meq/L 9 8-109 Normal (applies to non-numeric results) [facility] ([facility] Laboratory test finding (navigational concept) 26.0 MM/L 2 3.0-27.0 Normal (applies to non-numeric results) [facility] Laboratory test finding (navigational concept) 0.7 mg/dL 0 .6-1.3 Normal (applies to non-numeric results) [facility] ([facility] Laboratory test finding (navigational concept) 10 mg/dL 8 -26 Normal (applies to non-numeric results) [facility] ([facility]) ID Date Data Source [id number] 02/07/2020 03:59:00 PM EDT [facility] ([facility] Name Value Range Interpretation Code Description Data Mandie rce(s) Supporting Document(s) Troponin I.cardiac [Mass/volume] in Serum or Plasma Laboratory test result [facility] ([facility] Laboratory test finding (navigational concept) 0.00 ng/mL 0 .00-0.08 Normal (applies to non-numeric results) [facility] ([facility] ID Date Data Source [id number] 02/07/2020 03:46:00 PM EDT [facility] ([facility] Name Value Range Interpretation Code Description Data Mandie rce(s) Supporting Document(s) Calcium.ionized [Mass/volume] in Serum o r Plasma by Ion-selective membrane electrode (ISE) 4.3 mg/dL 4.5-5.3 Below low normal [facility] ( [facility] ID Date Data Source [id number] 02/07/2020 03:46:00 PM EDT [facility] ([facility] Name Value Range Interpretation Code Description Data Mandie rce(s) Supporting Document(s) Blood Type Laboratory test result Normal (applies to non-n umeric results) [facility] ([facility] AB Screen (Indirect Fariba)Vis Laboratory test result Normal (applies to non- numeric results) [facility] ([facility] ) ID Date Data Source [id number] 02/07/2020 03:35:00 PM EDT [facility] ([facility] Name Value Range Interpretation Code Description Data Mandie rce(s) Supporting Document(s) Red Blood Count 5.39 10 4.30-6.10 Normal (applies to non-numeric results) [facility] ([facility] White Blood Count 15.1 10 4.0-10.0 Above high normal [facility] ([facility] Mean Corpuscular Hemoglobin 32.3 pg 27.0-33.0 Norm al (applies to non-numeric results) [facility] ([facility] ) Hemoglobin 17.4 g/dL 13.5-17.5 Normal (applies to non-numeric resul ts) [facility] ([facility] Mean Corpuscular Volume 92.4 fl 80.0-96.0 Normal ( applies to non-numeric results) [facility] ([facility] ) Hematocrit 49.8 % 42.0-52.0 Normal (applies to non-numeric resul ts) [facility] ([facility] Red Cell Distribution Width 12.8 % 11.5-14.5 Norm al (applies to non-numeric results) [facility] ([facility] ) Platelet Count, Automated 295 10 150-450 Normal (applies to non-numeric results) [facility] ([facility] ) Mean Corpuscular HGB Conc 34.9 g/dL 32.0-36.5 Normal (applies to non-numeric results) [facility] ([facility] ) Neutrophils % 87.7 % 36.0-66.0 Above high normal [facility] ([facility] Duval % 3.6 % 0.0-5.0 Normal (applies to non-numeric resul ts) [facility] ([facility] Lymph % 7.8 % 24.0-44.0 Below low normal [facility] ( [facility] Baso % 0.4 % 0.0-1.0 Normal (applies to non-numeric resul ts) [facility] ([facility] Nucleated Red Blood Cell % 0.0 % 0-0 Normal (applies to n on-numeric results) [facility] ([facility] Eos % 0.1 % 0.0-3.0 Normal (applies to non-numeric resul ts) [facility] ([facility] Immature Granulocyte % 0.4 % 0-3.0 Normal (applies to non-n umeric results) [facility] ([facility] Duval # 0.5 10 0.0-0.8 Normal (applies to non-numeric resul ts) [facility] ([facility] Lymph # 1.2 10 1.5-5.0 Below low normal [facility] ( [facility] Neutrophils # 13.3 10 1.5-8.5 Above high normal [facility] ([facility] Eos # 0.0 10 0.0-0.5 Normal (applies to non-numeric resul ts) [facility] ([facility] Baso # 0.1 10 0.0-0.2 Normal (applies to non-numeric resul ts) [facility] ([facility] ID Date Data Source [id number] 02/07/2020 03:35:00 PM EDT [facility] ([facility] Name Value Range Interpretation Code Description Data Mandie rce(s) Supporting Document(s) Prothrombin Time 13.4 s 11.8-14.0 Normal (applies to non-numeric results) [facility] ([facility] Inr 1.05 Normal (applies to non-numeric resul ts) [facility] ([facility] THERAPUTIC HUMAN INR VALUES INDICATIONS NORMAL RANGES PROPHYLAXIS/TREATMENT OF: VENOUS THROMBOSIS 2.0-3.0 PULMONARY EMBOLISM 2.0-3.0 PREVENTION OF SYSTEMIC EMBOLISM FROM: TISSUE HEART VALVES 2.0-3.0 ACUTE MYOCARDIAL INFARCTION 2.0-3.0 VALVULAR HEART DISEASE 2.0-3.0 ATRIAL FIBRILLATION 2.0-3.0 MECHANICAL VALVES(HIGH RISK) 2.5-3.5 RECURRENT MYOCARDIAL INFARCTION 2.5-3.5 ID Date Data Source [id number] 02/07/2020 03:35:00 PM EDT [facility] ([facility] Name Value Range Interpretation Code Description Data Mandie rce(s) Supporting Document(s) aPTT in Platelet poor plasma by Coagulation assay 31.3 s 25.0-38.4 Normal (applies to non-numeric results) [facility] ID Date Data Source [id number] 02/07/2020 03:35:00 PM EDT [facility] ([facility] Name Value Range Interpretation Code Description Data Mandie rce(s) Supporting Document(s) CPK Creatine Phosphokinase 152 U/L 39-308 Marie l (applies to non-numeric results) [facility] ([facility] ) CK-MB Value Mass Laboratory test result Normal ( applies to non-numeric results) [facility] ([facility] ) MB/CK Relative Index 0.66 Normal (applies to non-num james results) [facility] ([facility] <content>DIAGNOSIS CRITERIA</content>
<content>MMB ng/ml Relative Index (RI)</content>
<content>NON-AMI < or = 5 N/A</content>
<content>HOOKER ZONE > 5 < or = 4</content>
<content>AMI > 5 > 4</content>
<content></content> Troponin I Laboratory test result Normal (applies to non-n umeric results) [facility] ([facility] <content>Troponin I Reference Interval f or Siemens Hatley LOCI:</content>
<content></content>
<content>99th Percentile= 0.00-0.045 ng/ml</content>
<content></content>
<content>Risk Stratification:</content>
<content><= 0.10 ng/ml Decreased Risk for Adverse Clinical</content>
<content>Events.</content>
<content>0.10-1.50 ng/ml Increased Risk for Adverse Clinical</content>
<content>Events. Evaluation of additional</content>
<content>criterion and/or repeat testing in 2-6</content>
<content>hours is suggested to rule out myocardial</content>
<content>damage.</content>
<content>>= 1.50 ng/ml Indicative of Myocardial Injury.</content>
<content></content> ID Date Data Source [id number] 02/07/2020 03:35:00 PM EDT [facility] Name Value Range Interpretation Code Description Data Mandie rce(s) Supporting Document(s) Ast/Sgot 17 U/L 7-37 Normal (applies to non-numeric resul ts) [facility] ([facility] Alt/SGPT 32 U/L 12-78 Normal (applies to non-numeric resul ts) [facility] ([facility] Alkaline Phosphatase 74 U/L 45-117 Normal (applies to non-num james results) [facility] ([facility] Bilirubin,Total 0.6 mg/dL 0.2-1.0 Normal (applies to non-numeric results) [facility] ([facility] Total Protein 7.7 GM/DL 6.4-8.2 Normal (applies to non-numeric re sults) [facility] ([facility] Bilirubin,Direct 0.2 mg/dL 0.0-0.2 Normal (applies to non-numeric results) [facility] ([facility] Albumin/Globulin Ratio 1.2 Normal (applies to non-n umeric results) [facility] ([facility] Albumin 4.2 GM/DL 3.2-5.2 Normal (applies to non-numeric resul ts) [facility] ([facility] ID Date Data Source [id number] 02/07/2020 03:35:00 PM EDT [facility] ([facility] Name Value Range Interpretation Code Description Data Mandie rce(s) Supporting Document(s) Magnesium [Mass/volume] in Serum or Plasma 1.7 mg/dL 1.8-2.4 Belo w low normal [facility] ([facility] Ethanol [Mass/volume] in Serum or Plasma Laboratory test result 0.000-0.010 Normal (applies to non-numeric results) [facility] ([facility] Salicylates [Mass/volume] in Serum or Plasma Laboratory test res ult 5.0-30.0 Below low normal [facility] ([facility] ) Acetaminophen [Mass/volume] in Serum or Plasma Laboratory test r esult 10.0-30.0 Below low normal [facility] ([facility] ) Thyrotropin [Units/volume] in Serum or Plasma 0.603 uIU/ML 0. 358-3.740 Normal (applies to non-numeric results) [facility] ([facility] ID Date Data Source [id number] 12/28/2019 04:42:00 PM EDT [facility] ([facility] Name Value Range Interpretation Code Description Data Mandie rce(s) Supporting Document(s) White Blood Count 6.4 10 4.0-10.0 Normal (applies to non-numeri c results) [facility] ([facility] Hemoglobin 14.4 g/dL 13.5-17.5 Normal (applies to non-numeric resul ts) [facility] ([facility] Red Blood Count 4.45 10 4.30-6.10 Normal (applies to non-numeric results) [facility] ([facility] Mean Corpuscular Hemoglobin 32.4 pg 27.0-33.0 Norm al (applies to non-numeric results) [facility] ([facility] ) Mean Corpuscular Volume 93.9 fl 80.0-96.0 Normal ( applies to non-numeric results) [facility] ([facility] ) Hematocrit 41.8 % 42.0-52.0 Below low normal [facility] ( [facility] Platelet Count, Automated 194 10 150-450 Normal (applies to non-numeric results) [facility] ([facility] ) Neutrophils % 69.6 % 36.0-66.0 Above high normal [facility] ([facility] Red Cell Distribution Width 13.2 % 11.5-14.5 Norm al (applies to non-numeric results) [facility] ([facility] ) Mean Corpuscular HGB Conc 34.4 g/dL 32.0-36.5 Normal (applies to non-numeric results) [facility] ([facility] ) Lymph % 19.7 % 24.0-44.0 Below low normal [facility] ( [facility] Duval % 8.0 % 0.0-5.0 Above high normal [facility] ([facility] Eos % 1.4 % 0.0-3.0 Normal (applies to non-numeric resul ts) [facility] ([facility] Immature Granulocyte % 0.5 % 0-3.0 Normal (applies to non-n umeric results) [facility] ([facility] Nucleated Red Blood Cell % 0.0 % 0-0 Normal (applies to n on-numeric results) [facility] ([facility] Baso % 0.8 % 0.0-1.0 Normal (applies to non-numeric resul ts) [facility] ([facility] Neutrophils # 4.4 10 1.5-8.5 Normal (applies to non-numeric re sults) [facility] ([facility] Lymph # 1.3 10 1.5-5.0 Below low normal [facility] ( [facility] Eos # 0.1 10 0.0-0.5 Normal (applies to non-numeric resul ts) [facility] ([facility] Duval # 0.5 10 0.0-0.8 Normal (applies to non-numeric resul ts) [facility] ([facility] Baso # 0.1 10 0.0-0.2 Normal (applies to non-numeric resul ts) [facility] ([facility] ID Date Data Source [id number] 12/28/2019 04:08:00 PM EDT [facility] ([facility] [place] [place] [facility] Name Value Range Interpretation Code Description Data Mandie rce(s) Supporting Document(s) Coronavirus 2019 Nasopharygeal Laboratory test result [facility] ([facility] Testing was performed using the rachel(R) SARS-CoV-2 test. This test was developed and its performance characteristics determined by [facility]. This test has not been FDA cleared or approved. This test has been authorized by FDA under an Emergency Use Authorization (EUA). This test is only authorized for the duration of time the declaration that circumstances exist justifying the authorization of the emergency use of in vitro diagnostic tests for detection of SARS-CoV-2 virus and/or diagnosis of COVID-19 infection under section 564(b)(1) of the Act, 21 U.S.C. 360bbb-3(b)(1), unless the authorization is terminated or revoked sooner. When diagnostic testing is negative, the possibility of a false negative result should be considered in the context of a patient's recent exposures and the presence of clinical signs and symptoms consistent with COVID-19. An individual without symptoms of COVID-19 and who is not shedding SARS-CoV-2 virus would expect to have a negative (not detected) result in this assay. Performed at: [facility] [id number] Project Assistant: Zayra Roman MD, Phone: [phone] Not Detected ID Date Data Source [id number] 12/28/2019 04:08:00 PM EDT [facility] ([facility] [place] [facility] Name Value Range Interpretation Code Description Data Mandie rce(s) Supporting Document(s) Laboratory test finding (navigational concept) Laboratory test r esult Normal (applies to non-numeric results) [facility] ([facility] RP PANEL RESULT NEGATIVE b y MULTIPLEXED NUCLEIC ACID PCR ID Date Data Source [id number] 12/28/2019 04:08:00 PM EDT [facility] ([facility] Name Value Range Interpretation Code Description Data Mandie rce(s) Supporting Document(s) Thyrotropin [Units/volume] in Serum or Plasma 0.979 uIU/ML 0. 358-3.740 Normal (applies to non-numeric results) [facility] ([facility] ID Date Data Source [id number] 12/28/2019 04:08:00 PM EDT [facility] ([facility] Name Value Range Interpretation Code Description Data Mandie rce(s) Supporting Document(s) Creatinine For GFR 0.70 mg/dL 0.70-1.30 Normal (applies to non -numeric results) [facility] ([facility] Blood Urea Nitrogen 13 mg/dL 7-18 Normal (applies to non-nume marty results) [facility] ([facility] Glomerular Filtration Rate Laboratory test result Normal (applies to non- numeric results) [facility] ([facility] ) <content>Units are mL/min/1.73 m2</content>
<content></content>
<content>Chronic Kidney Disease Staging per NKF:</content>
<content></content>
<content>Stage I & II GFR >=60 Normal to Mildly Decreased</content>
<content>Stage III GFR 30- 59 Moderately Decreased</content>
<content>Stage IV GFR 15-29 Severely Decreased</content>
<content>Stage V GFR <15 Very Little GFR Left</content>
<content>ESRD GFR <15 on [employer]</content>
<content></content> Glucose, Fasting 86 mg/dL 70-100 Normal (applies to non-numeric results) [facility] ([facility] Potassium Serum 4.0 meq/L 3.5-5.1 Normal (applies to non-numeric results) [facility] ([facility] Sodium Level 141 meq/L 136-145 Normal (applies to non-numeric res ults) [facility] ([facility] Calcium Level 8.8 mg/dL 8.5-10.1 Normal (applies to non-numeric re sults) [facility] ([facility] Chloride Level 107 meq/L 98-107 Normal (applies to non-numeric r esults) [facility] ([facility] Carbon Dioxide Level 27 meq/L 21-32 Normal (applies to non-num james results) [facility] ([facility] Anion Gap 7 meq/L 8-16 Below low normal [facility] ( [facility] ID Date Data Source [id number] 12/28/2019 04:08:00 PM EDT [facility] [place] [place] [facility] Name Value Range Interpretation Code Description Data Mandie rce(s) Supporting Document(s) Ast/Sgot 19 U/L 7-37 Normal (applies to non-numeric resul ts) [facility] ([facility] Bilirubin,Total 0.9 mg/dL 0.2-1.0 Normal (applies to non-numeric results) [facility] ([facility] Alt/SGPT 26 U/L 12-78 Normal (applies to non-numeric resul ts) [facility] ([facility] Bilirubin,Direct 0.2 mg/dL 0.0-0.2 Normal (applies to non-numeric results) [facility] ([facility] Alkaline Phosphatase 62 U/L 45-117 Normal (applies to non-num james results) [facility] ([facility] Albumin 3.8 GM/DL 3.2-5.2 Normal (applies to non-numeric resul ts) [facility] ([facility] Total Protein 7.1 GM/DL 6.4-8.2 Normal (applies to non-numeric re sults) [facility] ([facility] Albumin/Globulin Ratio 1.15 1.00-1.93 Normal (applies to non-numeric results) [facility] ([facility] ID Date Data Source [id number] 12/28/2019 04:08:00 PM EDT [facility] Name Value Range Interpretation Code Description Data Mandie rce(s) Supporting Document(s) SARS CORONAVIRUS 2 RNA [facility] This lab was ordered by [facility] and reported by [facility]. ID Date Data Source [id number] 11/27/2019 11:18:00 PM EDT [facility] ([facility] Name Value Range Interpretation Code Description Data Mandie rce(s) Supporting Document(s) Respiratory Panel Laboratory test result [facility] ([facility] This respiratory PCR panel detects Influ daphne A H1, H3 and 2009 H1 viruses, Influenza B virus, Resp iratory syncytial virus, Human metapneumovirus, Parainfluenza virus 1, 2, 3 and 4, Adenovirus, Rhinovirus/Enterovirus, Coronavirus HKU1, NL63, OC43 and 229E, Bordetella pertussis, Mycoplasma pneumoniae and Chlamydia pneumoniae. NEGATIVE by MULTIPLEXED NUCLEIC ACID PCR ID Date Data Source [id number] 11/27/2019 11:18:00 PM EDT [facility] ([facility] Name Value Range Interpretation Code Description Data Mandie rce(s) Supporting Document(s) Fibrin D-dimer FEU [Mass/volume] in Platelet poor plasma Lab oratory test result Normal (applies to non-numeric results) [facility] ([facility] ID Date Data Source [id number] 11/27/2019 11:18:00 PM EDT [facility] ([facility] Name Value Range Interpretation Code Description Data Mandie rce(s) Supporting Document(s) Glucose, Fasting 119 mg/dL 70-100 Above high normal [facility] ([facility] Blood Urea Nitrogen 7 mg/dL 7-18 Normal (applies to non-nume marty results) [facility] ([facility] Creatinine For GFR 0.86 mg/dL 0.70-1.30 Normal (applies to non -numeric results) [facility] ([facility] Potassium Serum 3.8 meq/L 3.5-5.1 Normal (applies to non-numeric results) [facility] ([facility] Sodium Level 142 meq/L 136-145 Normal (applies to non-numeric res ults) [facility] ([facility] Chloride Level 106 meq/L 98-107 Normal (applies to non-numeric r esults) [facility] ([facility] Glomerular Filtration Rate Laboratory test result Normal (applies to non- numeric results) [facility] ([facility] <content>Units are mL/min/1.73 m2</content>
<content></content>
<content>Chronic Kidney Disease Staging per NKF:</content>
<content></content>
<content>Stage I & II GFR >=60 Normal to Mildly Decreased</content>
<content>Stage III GFR 30- 59 Moderately Decreased</content>
<content>Stage IV GFR 15-29 Severely Decreased</content>
<content>Stage V GFR <15 Very Little GFR Left</content>
<content>ESRD GFR <15 on [employer]END[employer]</content>
<content></content> Carbon Dioxide Level 28 meq/L 21-32 Normal (applies to non-num james results) [facility] ([facility] Anion Gap 8 meq/L 8-16 Normal (applies to non-numeric resul ts) [facility] ([facility] Calcium Level 9.1 mg/dL 8.5-10.1 Normal (applies to non-numeric re sults) [facility] ([facility] ID Date Data Source [id number] 11/27/2019 11:18:00 PM EDT [facility] [place] [place] [facility] Name Value Range Interpretation Code Description Data Mandie rce(s) Supporting Document(s) Hemoglobin 17.0 g/dL 13.5-17.5 Normal (applies to non-numeric resul ts) [facility] ([facility] Red Blood Count 5.33 10 4.30-6.10 Normal (applies to non-numeric results) [facility] ([facility] White Blood Count 8.7 10 4.0-10.0 Normal (applies to non-numeri c results) [facility] ( [facility] Mean Corpuscular Volume 92.7 fl 80.0-96.0 Normal ( applies to non-numeric results) [facility] ([facility] Mean Corpuscular Hemoglobin 31.9 pg 27.0-33.0 Norm al (applies to non-numeric results) [facility] ([facility] Hematocrit 49.4 % 42.0-52.0 Normal (applies to non-numeric resul ts) [facility] ([facility] Platelet Count, Automated 244 10 150-450 Normal (applies to non-numeric results) [facility] ([facility] Red Cell Distribution Width 12.9 % 11.5-14.5 Norm al (applies to non-numeric results) [facility] ([facility] Mean Corpuscular HGB Conc 34.4 g/dL 32.0-36.5 Normal (applies to non-numeric results) [facility] ([facility] ) Neutrophils % 75.6 % 36.0-66.0 Above high normal [facility] ([facility] Duval % 5.0 % 0.0-5.0 Normal (applies to non-numeric resul ts) [facility] ([facility] Lymph % 16.8 % 24.0-44.0 Below low normal [facility] ( [facility] Nucleated Red Blood Cell % 0.0 % 0-0 Normal (applies to n on-numeric results) [facility] ([facility] Immature Granulocyte % 0.3 % 0-3.0 Normal (applies to non-n umeric results) [facility] ([facility] Baso % 0.6 % 0.0-1.0 Normal (applies to non-numeric resul ts) [facility] ([facility] Eos % 1.7 % 0.0-3.0 Normal (applies to non-numeric resul ts) [facility] ([facility] Duval # 0.4 10 0.0-0.8 Normal (applies to non-numeric resul ts) [facility] ([facility] Neutrophils # 6.5 10 1.5-8.5 Normal (applies to non-numeric re sults) [facility] ([facility] Lymph # 1.5 10 1.5-5.0 Normal (applies to non-numeric resul ts) [facility] ([facility] Eos # 0.2 10 0.0-0.5 Normal (applies to non-numeric resul ts) [facility] ([facility] Baso # 0.1 10 0.0-0.2 Normal (applies to non-numeric resul ts) [facility] ([facility] ID Date Data Source [id number] 11/27/2019 11:18:00 PM EDT [facility] ([facility] [place] [facility] Name Value Range Interpretation Code Description Data Mandie rce(s) Supporting Document(s) Venous PH 7.348 units 7.330-7.430 Normal (applies to non-numeric res ults) [facility] ([facility] Venous Partial Pressure Co2 45.5 mmHg 38.0-50.0 Norm al (applies to non-numeric results) [facility] ([facility] Venous Partial Pressure O2 46.6 mmHg 30.0-50.0 Marie l (applies to non-numeric results) [facility] ([facility] Venous Base Excess -1.5 Normal (applies to non-numer ic results) [facility] ([facility] Venous Total Co2 25.8 meq/L 24.0-28.0 Normal (applies to non-numeric results) [facility] ([facility] Venous Hco3 24.4 meq/L 23.0-27.0 Normal (applies to non-numeric resu lts) MEDCHANCE ([facility] Venous O2 Saturation 82.5 % 60.0-80.0 Above high normal [facility] ([facility] Venous Standard Hco3 22.8 meq/L Normal (applies to non-num james results) [facility] ([facility] Procedure Vital Signs ID Date Data Source UNK Name Value Range Interpretation Code Description Data Source(s) Oxygen saturation in Arterial blood by Pulse oximetry 97 % 97 % [facility] ([facility] Body mass index (BMI) [Ratio] 18.0 kg/m2 18.0 k g/m2 [facility] ([facility] [place] body weight 172 [lb_av] 172 [lb_av] MEDEN T ([facility] Body weight 129.00 [lb_av] 129.00 [lb_av] EDIEN T ([facility] Body height 71 [in_i] 71 [in_i] [facility] ([facility] [facility] 5'11" Respiratory rate 16 /min 16 /min [facility] ( [facility] Heart rate 74 /min 74 /min [facility] ([facility] Body temperature 98.4 [degF] 98.4 [degF] [facility] ([facility] Diastolic blood pressure 62 mm[Hg] 62 mm[Hg] [facility] ([facility] Systolic blood pressure 108 mm[Hg] 108 mm[Hg] M EDENT ([facility] Oxygen saturation in Arterial blood by Pulse oximetry 94 % 94 % [facility] ([facility] Body mass index (BMI) [Ratio] 18.0 kg/m2 18.0 k g/m2 [facility] ([facility] [place] body weight 172 [lb_av] 172 [lb_av] MEDEN T ([facility] Body weight 129.00 [lb_av] 129.00 [lb_av] MEDEN T ([facility] Body height 71 [in_i] 71 [in_i] [facility] ([facility] [place] [facility] 5'11" Respiratory rate 16 /min 16 /min [facility] ( [facility] Heart rate 100 /min 100 /min [facility] ([facility] Body temperature 99.0 [degF] 99.0 [degF] [facility] ([facility] Diastolic blood pressure 66 mm[Hg] 66 mm[Hg] [facility] ([facility] Systolic blood pressure 104 mm[Hg] 104 mm[Hg] M EDENT ([facility] Oxygen saturation in Arterial blood by Pulse oximetry 98 % 98 % [facility] ([facility] ([place]), (Room Air) Body mass index (BMI) [Ratio] 20.2 kg/m2 20.2 k g/m2 [facility] ([facility] [place] body weight 172 [lb_av] 172 [lb_av] MEDEN T ([facility] Body weight 145.00 [lb_av] 145.00 [lb_av] MEDEN T ([facility] Body height 71 [in_i] 71 [in_i] [facility] ([facility] [place] [facility] 5'11" Respiratory rate 17 /min 17 /min [facility] ( [facility] Heart rate 76 /min 76 /min [facility] ([facility] Body temperature 98.8 [degF] 98.8 [degF] [facility] ([facility] Diastolic blood pressure 76 mm[Hg] 76 mm[Hg] [facility] ([facility] Systolic blood pressure 126 mm[Hg] 126 mm[Hg] Isa RIVERA ([facility]
[2020-10-25] MEDS ORDERED: LORazepam 2 MG/ML VIAL IV STA (14:08)
[2020-10-25] MEDS ORDERED: METOCLOPRAMIDE INJ 10MG/2ML VIAL (J2765 PER 1) IV ONE (14:15)
[2020-10-25] MEDS ORDERED: NS 1,000 ML IV ONE (14:15)
--- OUTSIDE RECORDS SUMMARY | 2020-10-25 14:27 | CCD ---
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 If you continue you may have access to information: Regarding HIV / AIDS; Provided by facilities licensed or operated by the [facility] Office of Mental Health; or Provided by the [facility] Office for People With Developmental Disabilities. If such information is present, then the following [facility] mandated warning applies: This information has been [...] 06/09/2020 12:00:00 AM EDT ORAL active [facility] ([facility] 100,000 unit/mL 05/26/2020 12:00:00 AM EDT suspension 60 SWISH 5ML BY MOUTH FOR LONG POSSIBLE THEN SWALLOW - REPEAT FOUR TIMES A DAY FOR 7 DAYS SWISH 5ML BY MOUTH FOR LONG POSSIBLE THEN SWALLOW - REPEAT FOUR TIMES A DAY FOR 7 DAYS SOLD: 05/26/2020 [facility] Nystatin 476039 UNT/ML Oral Suspension Nystatin 05/26/2020 12:00:00 AM EDT completed [facility] ([facility] 100,000 unit/mL 05/26/2020 12:00:00 AM [...] relationship to xiao Policy Xiao Plan Information [facility] COMMUNITY [facility] [id number] SP [id number] [facility](MCAID) O [id number] S [id number] [facility] COMMUNITY PLAN [facility] [id number] SP [id number] SELF PAY ONLY [id number] SP [id number] [facility] COMMUNITY PLAN XIX [id number] [facility]ITY [facility]AN [facility] [id number] SP [id number] [facility] Community Plan Commercial [id number] Self [id number] Medicaid [place] Medigap Part B Self [facility] Community Plan Commercial Self [facility](MCAID) O [id number] S [id number] [facility] [id number] SP [id number] MEDICAID UNAVAILABLE UNAVAILA BLE [facility] COMMUNITY PLAN [facility] [id number] SP [id number] MEDICAID [id number] SP [id number] SELF PAY UNAVAILABLE SP UNAVAILA BLE Problems, Conditions, and Diagnoses Code Display Name Description Problem Type Effective Dates Data Source(s) [id number] Gastroesophageal reflux disease Gastroesophageal reflux disease Problem 11/19/2019 12:00:00 AM EDT [facility] Results ID Date Data Source [id number] 06/09/2020 01:25:00 PM EDT [facility] ([facility] Name Value Range Interpretation Code Description Data Mandie rce(s) Supporting Document(s) Gamma glutamyl transferase [Enzymatic activity/volume] in Serum or Plasma 102 IU/L 0-65 Above high normal [facility] ([facility] ID Date Data Source [id number] 06/09/2020 01:25:00 PM EDT [facility] ([facility] Name Value Range Interpretation Code Description Data Mandie rce(s) Supporting Document(s) Hepatitis A virus IgM Ab [Presence] in Serum or Plasma by Immunoassay Laboratory test result [facility] ([facility] Hep B Core Ab, IgM Laboratory test result [facility] Hepatitis C virus Ab Signal/Cutoff in Serum or Plasma by Immunoassay Laboratory test result 0.0-0.9 [facility] ([facility] <content>Negative: < 0.8</content><b r/><content>Indeterminate: 0.8 - 0.9</content>
<content>Positive: > 0.9</content>
<content>The CDC recommends that a positive HCV antibody result</content>
<content>be followed up with a HCV Nucleic Acid Amplification</content>
<content>test (995687).</content>
<content></content> Hepatitis B virus surface Ag [Presence] in Serum or Pl asma by Immunoassay Laboratory test result [facility] ([facility] ID Date Data Source [id number] 05/26/2020 02:35:00 PM EDT [facility] ([facility] Name Value Range Interpretation Code Description Data Mandie rce(s) Supporting Document(s) Written Authorization Laboratory test result [facility] No Written Authorization Received. Request Problem Laboratory test result [facility] ([facility] We have received your request for additi onal testing, however we are unable to add the test you requested. The following test(s) were not performed: Quantity was not sufficient for analysis. TEST: [id number] Hepatitis Panel (4) ID Date Data Source [id number] 05/26/2020 02:35:00 PM EDT [facility] ([facility] Name Value Range Interpretation Code Description Data Mandie rce(s) Supporting Document(s) Hepatitis A virus IgM Ab [Presence] in Serum or Plasma by Immunoassay Laboratory test result [facility] ([facility] We have received your request for additi onal testing, however we are unable to add the test you requested. The following test(s) were not performed: Quantity was not sufficient for analysis. Hepatitis B virus surface Ag [Presence] in Serum or Pl asma by Immunoassay Laboratory test result [facility] ([facility] Test not performed Hep B Core Ab, IgM Laboratory test result [facility] ([facility] Test not performed Hepatitis C virus Ab Signal/Cutoff in Serum or Plasma by Immunoassay Laboratory test result [facility] ([facility] Test not performed ID Date Data Source [id number] 05/26/2020 02:35:00 PM EDT [facility] ([facility] Name Value Range Interpretation Code Description Data Mandie rce(s) Supporting Document(s) Bilirubin.conjugated [Mass/volume] in Serum or Plasma 0.35 mg/dL 0.00 -0.40 [facility] ([facility] ID Date Data Source [id number] 05/26/2020 02:35:00 PM EDT [facility] ([facility] Name Value Range Interpretation Code Description Data Mandie rce(s) Supporting Document(s) BUN 14 mg/dL 6-20 [facility] ([facility] Glucose [Mass/volume] in Serum or Plasma 121 mg/dL 65-99 Above high normal [facility] ([facility] Creatinine [Mass/volume] in Serum or Plasma 0.85 mg/dL 0.76-1.27 [facility] ([facility] eGFR If NonAfricn Am 119 mL/min/1.73 [facility] ([facility] Sodium [Moles/volume] in Serum or Plasma 140 mmol/L 134-144 [facility] ([facility] Urea nitrogen/Creatinine [Mass Ratio] in Serum or Plasma 16 9 -20 [facility] ([facility] eGFR If Africn Am 137 mL/min/1.73 ME DENT ([facility] Chloride [Moles/volume] in Serum or Plasma 98 mmol/L 96-106 [facility] ([facility] Carbon dioxide, total [Moles/volume] in Serum or Plasma 28 mmol/L 20 -29 [facility] ([facility] Calcium [Mass/volume] in Serum or Plasma 9.0 mg/dL 8.7-10.2 [facility] ([facility] Potassium [Moles/volume] in Serum or Plasma 4.1 mmol/L 3.5-5.2 [facility] ([facility] Globulin [Mass/volume] in Serum by calculation 3.3 g/dL 1.5-4.5 [facility] ([facility] Albumin [Mass/volume] in Serum or Plasma 4.0 g/dL 4.1-5.2 Below low normal [facility] ([facility] Protein [Mass/volume] in Serum or Plasma 7.3 g/dL 6.0-8.5 [facility] ([facility] Alkaline phosphatase [Enzymatic activity/volume] in Serum or Plasma 553 IU/L 39-117 Above high normal [facility] ([facility] Bilirubin.total [Mass/volume] in Serum or Plasma 0.5 mg/dL 0.0-1.2 [facility] ([facility] Albumin/Globulin [Mass Ratio] in Serum or Plasma 1.2 1.2-2.2 [facility] ([facility] Aspartate aminotransferase [Enzymatic activity/volume] in Serum or Plasma 209 IU/L 0-40 Above high normal [facility] ([facility] Alanine aminotransferase [Enzymatic activity/volume] i n Serum or Plasma 312 IU/L 0-44 Above high normal [facility] ([facility] ID Date Data Source [id number] 05/26/2020 02:35:00 PM EDT [facility] ([facility] Name Value Range Interpretation Code Description Data Mandie rce(s) Supporting Document(s) Leukocytes [#/volume] in Blood by Automated count 9.3 x10E3/uL 3.4-10 .8 [facility] ([facility] Erythrocytes [#/volume] in Blood by Automated count 4.38 x10E6/uL 4.1 4-5.80 [facility] ([facility] Hemoglobin [Mass/volume] in Blood 14.1 g/dL 13.0-17.7 [facility] ([facility] Hematocrit [Volume Fraction] of Blood by Automated count 41.4 % 3 7.5-51.0 [facility] ([facility] Erythrocyte mean corpuscular hemoglobin concentration [Mass/volume] by Automated count 34.1 g/dL 31.5-35.7 [facility] Erythrocyte mean corpuscular volume [Entitic volume] by Auto mated count 95 fL 79-97 [facility] ([facility] Erythrocyte mean corpuscular hemoglobin [Entitic mass] by Automated count 32.2 pg 26.6-33.0 [facility] Erythrocyte distribution width [Ratio] by Automated count 14.0 % 11.6-15.4 [facility] ([facility] Lymphs 47 % [facility] Lymphocytes appear reactive. Neutrophils 41 % [facility] ([facility] Platelets [#/volume] in Blood [...] x10E3/uL 0.7-3.1 Above high no rmal MED[facility] ([facility] Monocytes [#/volume] in Blood 0.9 x10E3/uL 0.1-0.9 [facility] ([facility] Basophils [#/volume] in Blood by Automated count 0.1 x10E3/uL 0.0-0.2 [facility] ([facility] Immature granulocytes [#/volume] in Blood by Automated count 0.1 x10E3/uL 0.0-0.1 [facility] ([facility] Immature granulocytes/100 leukocytes in Blood by Automated count 1 % [facility] ([facility] Nucleated erythrocytes/100 leukocytes [Ratio] in Blood by Automated count Laboratory test result [facility] ([facility] Morphology [Interpretation] in Blood Narrative Laboratory test result [facility] ([facility] Verified by microscopic examination. ID Date Data Source [id number] 05/26/2020 02:35:00 PM EDT [facility] ([facility] Name Value Range Interpretation Code Description Data Mandie rce(s) Supporting Document(s) Request Problem Laboratory test result [facility] ([facility] We have received your request for additi onal testing, however we are unable to add the test you requested. The following test(s) were not performed: Quantity was not sufficient for analysis. TEST: [id number] Hepatitis Panel (4) ID Date Data Source [id number] 05/26/2020 02:34:00 PM EDT [facility] ([facility] Name Value Range Interpretation Code Description Data Mandie rce(s) Supporting Document(s) Color Urine Laboratory test result M EDENT ([facility] Appearance of Urine Laboratory test result [facility] ([facility] Specific [place]rop 1.030 1.00-1.03 [facility] ([facility] Bilirubin.total [Presence] in Urine by Test strip Laboratory stefania t result Above high normal [facility] ([facility] ) Ketones Laboratory test result Above high normal [facility] ([facility] Glucose Urine Laboratory test result [facility] ([facility] PH Urine 6.0 5.0-8.0 [facility] ([facility] Blood Urine Laboratory test result M EDENT ([facility] Protein Urine Laboratory test result Above high normal [facility] ([facility] Nitrite Laboratory test result [facility] ([facility] Leukocytes Laboratory test result ME DENT ([facility] Urobilinogen 2.0 EU/dl 0.2-1.0 Above high normal MEDEN T ([facility] ID Date Data Source [id number] 02/07/2020 04:58:00 PM EDT [facility] ([facility] Name Value Range Interpretation Code Description Data Mandie rce(s) Supporting Document(s) Amphetamines Level Urine Laboratory test result Normal (applies to non-numeric results) [facility] ([facility] ) Cannabinoids Urine Laboratory test result Normal (applies to non-numeric results) [facility] ([facility] ) Benzodiazepines Urine Laboratory test result Nor mal (applies to non-numeric results) [facility] ([facility] ) Barbiturates Urine Laboratory test result Normal (applies to non-numeric results) [facility] ([facility] ) Methadone Urine Laboratory test result Normal (a pplies to non-numeric results) [facility] ([facility] ) Opiates Urine Laboratory test result Normal (applies t o non-numeric results) [facility] ([facility] Cocaine Metabolite Urine Laboratory test result Above high normal [facility] ([facility] Phencyclidine Urine Laboratory test result Marie l (applies to non-numeric results) [facility] ([facility] ) ALL PRESUMPTIVE POSITIVE FINDINGS [...] CALL THE LAB. ID Date Data Source [id number] 02/07/2020 04:12:00 PM EDT [facility] ([facility] Name Value Range Interpretation Code Description Data Mandie rce(s) Supporting Document(s) Glucose [Mass/volume] in Capillary blood by Glucometer 78 mg/dL 70-105 Normal (applies to non-numeric results) [facility] ID Date Data Source [id number] 02/07/2020 04:11:00 PM EDT [facility] ([facility] [...] -26 Normal (applies to non-numeric results) [facility] ([facility]) ID Date Data Source [id number] 02/07/2020 03:59:00 PM EDT [facility] ([facility] Name Value Range Interpretation Code Description Data Mandie rce(s) Supporting Document(s) Troponin I.cardiac [Mass/volume] in Serum or Plasma Laboratory test result [facility] ([facility] Laboratory test finding (navigational concept) 0.00 ng/mL 0 .00-0.08 Normal (applies to non-numeric results) [facility] ([facility] ID Date Data Source [id number] 02/07/2020 03:46:00 PM EDT [facility] ([facility] Name Value Range Interpretation Code Description Data Mandie rce(s) Supporting Document(s) Calcium.ionized [Mass/volume] in Serum o r Plasma by Ion-selective membrane electrode (ISE) 4.3 mg/dL 4.5-5.3 Below low normal [facility] ( [facility] ID Date Data Source [id number] 02/07/2020 03:46:00 PM EDT [facility] ([facility] Name Value Range Interpretation Code Description Data Mandie rce(s) Supporting Document(s) Blood Type Laboratory test result Normal (applies to non-n umeric results) [facility] ([facility] AB Screen (Indirect Fariba)Vis Laboratory test result Normal (applies to non- numeric results) [facility] ([facility] ) ID Date Data Source [id number] 02/07/2020 03:35:00 PM EDT [facility] ([facility] Name Value Range Interpretation Code Description Data Mandie rce(s) Supporting Document(s) Red Blood Count 5.39 10 4.30-6.10 Normal (applies to non-numeric results) [facility] ([facility] White Blood Count 15.1 10 4.0-10.0 Above high normal [facility] ([facility] Mean Corpuscular Hemoglobin 32.3 pg [...] Norm al (applies to non-numeric results) [facility] ([facility] ) Platelet Count, Automated 295 10 150-450 Normal (applies to non-numeric results) [facility] ([facility] ) Mean Corpuscular HGB Conc 34.9 g/dL 32.0-36.5 Normal (applies to non-numeric results) [facility] ([facility] Neutrophils % 87.7 % 36.0-66.0 Above high normal MEDE NT ([facility] [place] % 3.6 % 0.0-5.0 Normal (applies to [...] umeric results) [facility] ([facility] [place] # 0.5 10 0.0-0.8 Normal (applies to non-numeric resul ts) [facility] ([facility] Lymph # 1.2 10 1.5-5.0 Below low normal [facility] ( [facility] Neutrophils # 13.3 10 1.5-8.5 Above high normal MEDE NT ([facility] Eos # 0.0 10 0.0-0.5 Normal (applies to non-numeric resul ts) [facility] ([facility] Baso # 0.1 10 0.0-0.2 Normal (applies to non-numeric resul ts) [facility] ID Date Data Source [id number] 02/07/2020 03:35:00 PM EDT [facility] ([facility] Name Value Range Interpretation Code Description Data Mandie rce(s) Supporting Document(s) Prothrombin Time 13.4 s 11.8-14.0 Normal (applies to non-numeric results) [facility] ([facility] Inr 1.05 Normal (applies to non-numeric resul ts) [facility] THERAPUTIC HUMAN INR VALUES INDICATIONS NORMAL RANGES PROPHYLAXIS/TREATMENT OF: VENOUS THROMBOSIS 2.0-3.0 PULMONARY EMBOLISM 2.0-3.0 PREVENTION OF SYSTEMIC EMBOLISM FROM: TISSUE HEART VALVES 2.0-3.0 ACUTE MYOCARDIAL INFARCTION 2.0-3.0 VALVULAR HEART DISEASE 2.0-3.0 ATRIAL FIBRILLATION 2.0-3.0 MECHANICAL VALVES(HIGH RISK) 2.5-3.5 RECURRENT MYOCARDIAL INFARCTION 2.5-3.5 ID Date Data Source [id number] 02/07/2020 03:35:00 PM EDT [facility] ([facility] Name Value Range Interpretation Code Description Data Mandie rce(s) Supporting Document(s) aPTT in Platelet poor plasma by Coagulation assay 31.3 s 25.0-38.4 Normal (applies to non-numeric results) [facility] ID Date Data Source [id number] 02/07/2020 03:35:00 PM EDT [facility] ([facility] Name Value Range Interpretation Code Description Data Mandie rce(s) Supporting Document(s) CPK Creatine Phosphokinase 152 U/L 39-308 Marie l (applies to non-numeric results) [facility]ANCE ([facility] CK-MB Value Mass Laboratory test result Normal ( applies to non-numeric results) [facility] ([facility] ) MB/CK Relative Index 0.66 Normal (applies to non-num james results) [facility] ([facility] <content>DIAGNOSIS CRITERIA</content>
<content>MMB ng/ml Relative Index (RI)</content>
<content>NON-AMI < or = 5 N/A</content>
<content>HOOKER ZONE > 5 < or = 4</content>
<content>AMI > 5 > 4</content>
<content></content> Troponin I Laboratory test result Normal (applies to non-n umeric results) [facility] ([facility] <content>Troponin I Reference Interval f or Siemens [place] LOCI:</content>
<content></content>
<content>99th Percentile= 0.00-0.045 ng/ml</content>
<content></content>
<content>Risk Stratification:</content>
<content><= 0.10 ng/ml Decreased Risk for Adverse Clinical</content>
<content>Events.</content>
<content>0.10-1.50 ng/ml Increased Risk for Adverse Clinical</content>
<content>Events. Evaluation of additional</content>
<content>criterion and/or repeat testing in 2-6</content>
<content>hours is suggested to rule out myocardial</content>
<content>damage.</content>
<content>>= 1.50 ng/ml Indicative of Myocardial Injury.</content>
<content></content> ID Date Data Source [id number] 02/07/2020 03:35:00 PM EDT [facility] ([facility] [...] 0.2-1.0 Normal (applies to non-numeric results) [facility] ([facility] Total Protein 7.7 GM/DL [...] [facility] ID Date Data Source [id number] 02/07/2020 03:35:00 PM EDT MED[facility] ([facility] [...] 358-3.740 Normal (applies to non-numeric results) [facility] ([facility] ID Date Data Source [id number] 12/28/2019 04:42:00 PM EDT MED[facility] ([facility] Name Value Range Interpretation Code Description Data Mandie rce(s) Supporting Document(s) White Blood Count 6.4 10 4.0-10.0 Normal (applies to non-numeri c results) MED[facility] ([facility] Hemoglobin 14.4 g/dL 13.5-17.5 Normal (applies to non-numeric resul ts) [facility] ([facility] Red Blood Count 4.45 10 4.30-6.10 Normal (applies to non-numeric results) [facility] ([facility] Mean Corpuscular Hemoglobin 32.4 pg 27.0-33.0 Norm al (applies to non-numeric results) [facility] ([facility] ) Mean Corpuscular Volume 93.9 fl 80.0-96.0 Normal ( applies to non-numeric results) [facility] ([facility] ) Hematocrit 41.8 % 42.0-52.0 Below low normal MED[facility] ( [facility] Platelet Count, Automated 194 10 150-450 Normal (applies to non-numeric results) [facility] ([facility] ) Neutrophils % 69.6 % 36.0-66.0 Above high normal MEDE NT ([facility] Red Cell Distribution Width 13.2 % 11.5-14.5 Norm al (applies to non-numeric results) [facility] ([facility] ) Mean Corpuscular HGB Conc 34.4 g/dL 32.0-36.5 Normal (applies to non-numeric results) [facility] ([facility] ) Lymph % 19.7 % 24.0-44.0 Below low normal [facility] ( [facility] [place] % 8.0 % 0.0-5.0 Above high normal [facility] ([facility] Eos % 1.4 % 0.0-3.0 Normal (applies to non-numeric resul ts) [facility] ([facility] Immature Granulocyte % 0.5 % 0-3.0 Normal (applies to non-n umeric results) [facility] ([facility] Nucleated Red Blood Cell % 0.0 % 0-0 Normal (applies to n on-numeric results) [facility] ([facility] Baso % 0.8 % 0.0-1.0 Normal (applies to non-numeric resul ts) [facility] ([facility] Neutrophils # 4.4 10 1.5-8.5 Normal (applies to non-numeric re sults) [facility] ([facility] Lymph # 1.3 10 1.5-5.0 Below low normal [facility] ( [facility] Eos # 0.1 10 0.0-0.5 Normal (applies to non-numeric resul ts) [facility] ([facility] [place] # 0.5 10 0.0-0.8 Normal (applies to non-numeric resul ts) [facility] ([facility] Baso # 0.1 10 0.0-0.2 Normal (applies to non-numeric resul ts) [facility] ([facility] ID Date Data Source [id number] 12/28/2019 04:08:00 PM EDT MEDENT ([facility] Name Value Range Interpretation Code Description Data Mandie rce(s) Supporting Document(s) Coronavirus 2019 Nasopharygeal Laboratory test result [facility] ([facility] Testing was performed using the rachel(R) SARS-CoV-2 test. This test was developed and its performance characteristics determined by [employer]. This test has not been FDA cleared [...] detected) result in this assay. Performed at: [facility] [id number] Motion Study Analyst: Zayra Roman MD, Phone: [phone] Not Detected ID Date Data Source [id number] 12/28/2019 04:08:00 PM EDT [facility] ([facility] Name Value Range Interpretation Code Description Data Mandie rce(s) Supporting Document(s) Laboratory test finding (navigational concept) Laboratory test r esult Normal (applies to non-numeric results) [facility] RP PANEL RESULT NEGATIVE b y MULTIPLEXED NUCLEIC ACID PCR ID Date Data Source [id number] 12/28/2019 04:08:00 PM EDT [facility] ([facility] Name Value Range Interpretation Code Description Data Mandie rce(s) Supporting Document(s) Thyrotropin [Units/volume] in Serum or Plasma 0.979 uIU/ML 0. 358-3.740 Normal (applies to non-numeric results) [facility] ([facility] ID Date Data Source [id number] 12/28/2019 04:08:00 PM EDT [facility] ([facility] Name Value Range Interpretation Code Description Data Mandie rce(s) Supporting Document(s) Creatinine For GFR 0.70 mg/dL 0.70-1.30 Normal (applies to non -numeric results) [facility] ([facility] Blood Urea Nitrogen 13 mg/dL 7-18 Normal (applies to non-nume marty results) [facility] ([facility] Glomerular Filtration Rate Laboratory test result Normal (applies to non- numeric results) [facility] ([facility] ) <content>Units are mL/min/1.73 m2</content>
<content></content>
<content>Chronic Kidney Disease Staging per NKF:</content>
<content></content>
<content>Stage I & II GFR >=60 Normal to Mildly Decreased</content>
<content>Stage III GFR 30- 59 Moderately Decreased</content>
<content>Stage IV GFR 15-29 Severely Decreased</content>
<content>Stage V GFR <15 Very Little GFR Left</content>
<content>ESRD GFR <15 on RIGGING LOFT REPAIRER</content>
<content></content> Glucose, Fasting 86 mg/dL 70-100 Normal (applies to non-numeric results) [facility] ([facility] Potassium Serum 4.0 meq/L 3.5-5.1 Normal (applies to non-numeric results) [facility] ([facility] Sodium Level 141 meq/L 136-145 Normal (applies to non-numeric res ults) [facility] ([facility] Calcium Level 8.8 mg/dL 8.5-10.1 Normal (applies to non-numeric re sults) [facility] ([facility] Chloride Level 107 meq/L 98-107 Normal (applies to non-numeric r esults) [facility] ([facility] Carbon Dioxide Level 27 meq/L 21-32 Normal (applies to non-num james results) [facility] ([facility] Anion Gap 7 meq/L 8-16 Below low normal [facility] ( [facility] ID Date Data Source [id number] 12/28/2019 04:08:00 PM EDT [facility] Name Value Range Interpretation Code Description Data Mandie rce(s) Supporting Document(s) Ast/Sgot 19 U/L 7-37 Normal (applies to non-numeric resul ts) [facility] ([facility] Bilirubin,Total 0.9 mg/dL 0.2-1.0 Normal (applies to non-numeric results) [facility] Alt/SGPT 26 U/L 12-78 Normal (applies to non-numeric resul ts) [facility] ([facility] Bilirubin,Direct 0.2 mg/dL 0.0-0.2 Normal (applies to non-numeric results) [facility] ([facility] Alkaline Phosphatase 62 U/L 45-117 Normal (applies to non-num james results) [facility] Albumin 3.8 GM/DL 3.2-5.2 Normal (applies to non-numeric resul ts) [facility] ([facility] Total Protein 7.1 GM/DL 6.4-8.2 Normal (applies to non-numeric re sults) [facility] ([facility] Albumin/Globulin Ratio 1.15 1.00-1.93 Normal (applies to non-numeric results) [facility] ([facility] ID Date Data Source [id number] 12/28/2019 04:08:00 PM EDT [facility] Name Value Range Interpretation Code Description Data Mandie rce(s) Supporting Document(s) SARS CORONAVIRUS 2 RNA [facility] This lab was ordered by [facility] and reported by [facility]. ID Date Data Source [id number] 11/27/2019 11:18:00 PM EDT [facility] ([facility] Name Value Range Interpretation Code Description Data Mandie rce(s) Supporting Document(s) Respiratory Panel Laboratory test result [facility] ([facility] This respiratory PCR panel detects Influ daphne A H1, H3 and 2009 H1 viruses, Influenza B virus, Resp iratory syncytial virus, Human metapneumovirus, Parainfluenza virus 1, 2, 3 and 4, Adenovirus, Rhinovirus/Enterovirus, Coronavirus HKU1, NL63, OC43 and 229E, Bordetella pertussis, Mycoplasma pneumoniae and Chlamydia pneumoniae. NEGATIVE by MULTIPLEXED NUCLEIC ACID PCR ID Date Data Source [id number] 11/27/2019 11:18:00 PM EDT [facility] ([facility] Name Value Range Interpretation Code Description Data Mandie rce(s) Supporting Document(s) Fibrin D-dimer FEU [Mass/volume] in Platelet poor plasma Lab oratory test result Normal (applies to non-numeric results) [facility] ([facility] ID Date Data Source [id number] 11/27/2019 11:18:00 PM EDT [facility] Name Value Range Interpretation Code Description Data Mandie rce(s) Supporting Document(s) Glucose, Fasting 119 mg/dL 70-100 Above high normal [facility] ([facility] Blood Urea Nitrogen 7 mg/dL 7-18 Normal (applies to non-nume marty results) [facility] ([facility] Creatinine For GFR 0.86 mg/dL 0.70-1.30 Normal (applies to non -numeric results) [facility] ([facility] Potassium Serum 3.8 meq/L 3.5-5.1 Normal (applies to non-numeric results) [facility] ([facility] Sodium Level 142 meq/L 136-145 Normal (applies to non-numeric res ults) [facility] ([facility] Chloride Level 106 meq/L 98-107 Normal (applies to non-numeric r esults) [facility] ([facility] Glomerular Filtration Rate Laboratory test result Normal (applies to non- numeric results) [facility] ([facility] ) <content>Units are mL/min/1.73 m2</content>
<content></content>
<content>Chronic Kidney Disease Staging per NKF:</content>
<content></content>
<content>Stage I & II GFR >=60 Normal to Mildly Decreased</content>
<content>Stage III GFR 30- 59 Moderately Decreased</content>
<content>Stage IV GFR 15-29 Severely Decreased</content>
<content>Stage V GFR <15 Very Little GFR Left</content>
<content>ESRD GFR <15 on RIGGING LOFT REPAIRER</content>
<content></content> Carbon Dioxide Level 28 meq/L 21-32 Normal (applies to non-num james results) [facility] ([facility] Anion Gap 8 meq/L 8-16 Normal (applies to non-numeric resul ts) [facility] ([facility] Calcium Level 9.1 mg/dL 8.5-10.1 Normal (applies to non-numeric re sults) [facility] ([facility] ID Date Data Source [id number] 11/27/2019 11:18:00 PM EDT [facility] Name Value Range Interpretation Code Description Data Mandie rce(s) Supporting Document(s) Hemoglobin 17.0 g/dL 13.5-17.5 Normal (applies to non-numeric resul ts) [facility] ([facility] Red Blood Count 5.33 10 4.30-6.10 Normal (applies to non-numeric results) [facility] ([facility] White Blood Count 8.7 [...] Normal (applies to non-numeric resul ts) [facility] ([facility] Platelet Count, Automated 244 [...] % 36.0-66.0 Above high normal [facility] NT ([facility] [place] % 5.0 % 0.0-5.0 Normal (applies to non-numeric resul ts) [facility] ([facility] Lymph % 16.8 % 24.0-44.0 Below low normal [facility] ( [facility] Nucleated Red Blood Cell % 0.0 % 0-0 Normal (applies to n on-numeric results) [facility] ([facility] Immature Granulocyte % 0.3 % 0-3.0 Normal (applies to non-n umeric results) [facility] ([facility] Baso % 0.6 % 0.0-1.0 Normal (applies to non-numeric resul ts) [facility] ([facility] Eos % 1.7 % 0.0-3.0 Normal (applies to non-numeric resul ts) [facility] ([facility] [place] # 0.4 10 0.0-0.8 Normal (applies to non-numeric resul ts) [facility] ([facility] Neutrophils # 6.5 10 1.5-8.5 Normal (applies to non-numeric re sults) [facility] ([facility] Lymph # 1.5 10 1.5-5.0 Normal (applies to non-numeric resul ts) [facility] ([facility] Eos # 0.2 10 0.0-0.5 Normal (applies to non-numeric resul ts) [facility] ([facility] Baso # 0.1 10 0.0-0.2 Normal (applies to non-numeric resul ts) [facility] ([facility] ID Date Data Source [id number] 11/27/2019 11:18:00 PM EDT [facility] ([facility] Name Value Range Interpretation Code Description Data Mandie rce(s) Supporting Document(s) Venous PH 7.348 units 7.330-7.430 Normal (applies to non-numeric res ults) [facility] ([facility] Venous Partial Pressure Co2 45.5 mmHg 38.0-50.0 Norm al (applies to non-numeric results) [facility] ([facility] Venous Partial Pressure O2 46.6 mmHg 30.0-50.0 Marie l (applies to non-numeric results) [facility] ([facility] Venous Base Excess -1.5 Normal (applies to non-numer ic results) [facility] ([facility] Venous Total Co2 25.8 meq/L 24.0-28.0 Normal (applies to non-numeric results) [facility] ([facility] Venous Hco3 24.4 meq/L 23.0-27.0 Normal (applies to non-numeric resu lts) [facility] ([facility] Venous O2 Saturation 82.5 % 60.0-80.0 Above high normal [facility] ([facility] Venous Standard Hco3 22.8 meq/L Normal (applies to non-num james results) [facility] ([facility] Procedure Vital Signs ID Date Data Source [id number] Name Value Range Interpretation Code Description Data Source(s) Oxygen saturation in Arterial blood by Pulse oximetry 97 % 97 % [facility] ([facility] Body mass index (BMI) [Ratio] 18.0 kg/m2 18.0 k g/m2 [facility] ([facility] [place] body weight 172 [lb_av] 172 [lb_av] MEDEN T ([facility] Body weight 129.00 [lb_av] 129.00 [lb_av] EDIEN T ([facility] Body height 71 [in_i] 71 [in_i] [facility] ([facility] 5'11" Respiratory rate 16 /min 16 /min [facility] ( [facility] Heart rate 74 /min 74 /min [facility] ([facility] Body temperature 98.4 [degF] 98.4 [degF] [facility] ([facility] Diastolic blood pressure 62 mm[Hg] 62 mm[Hg] [facility] ([facility] Systolic blood pressure 108 mm[Hg] 108 mm[Hg] M [facility] ([facility] Oxygen saturation in Arterial blood by Pulse oximetry 94 % 94 % [facility] ([facility] Body mass index (BMI) [Ratio] 18.0 kg/m2 18.0 k g/m2 [facility] ([facility] [place] body weight 172 [lb_av] 172 [lb_av] MEDEN T ([facility] Body weight 129.00 [lb_av] 129.00 [lb_av] MEDEN T ([facility] Body height 71 [in_i] 71 [in_i] [facility] ([facility] 5'11" Respiratory rate 16 [...] k g/m2 [facility] ([facility] [place] body weight 172 [lb_av] 172 [lb_av] MED[facility] T ([facility] Body weight 145.00 [lb_av] 145.00 [lb_av] MEDEN T ([facility] Body height 71 [in_i] 71 [in_i] [facility] ([facility] 5'11" Respiratory rate 17 /min 17 /min [facility] ( [facility] Heart rate 76 /min 76 /min [facility] ([facility] Body temperature 98.8 [degF] 98.8 [degF] [facility] ([facility] Diastolic blood pressure 76 mm[Hg] 76 mm[Hg] [facility] ([facility] Systolic blood pressure 126 mm[Hg] 126 mm[Hg] Isa RIVERA ([facility]
[2020-10-25 15:00] LABS: HEMATOCRIT 48.9 % (42.0-52.0); HEMOGLOBIN 17.4 g/dl (13.5-17.5); MEAN CORPUSCULAR HGB CONC 35.6 g/dl (32.0-36.5); MEAN CORPUSCULAR VOLUME 89.9 fl (80.0-96.0); PLATELET COUNT, AUTOMATED 285 10^3/uL (150-450); RED BLOOD COUNT 5.44 10^6/uL (4.30-6.10); WHITE BLOOD COUNT 14.7 10^3/uL (4.0-10.0)
[2020-10-25 15:20] LABS: ALBUMIN 4.4 GM/DL (3.2-5.2); ALT/SGPT 43 U/L (12-78); BILIRUBIN,DIRECT 0.3 MG/DL (0.0-0.2); BILIRUBIN,TOTAL 0.9 MG/DL (0.2-1.0); BLOOD UREA NITROGEN 6 MG/DL (7-18); CALCIUM LEVEL 9.6 MG/DL (8.5-10.1); CARBON DIOXIDE LEVEL 28 MEQ/L (21-32); CHLORIDE LEVEL 104 MEQ/L (98-107); CREATININE FOR GFR 0.98 MG/DL (0.70-1.30); ETHYL ALCOHOL (ETHANOL) < 0.003 % (0.000-0.010); GLOMERULAR FILTRATION RATE > 60.0 (>60); GLUCOSE, FASTING 104 MG/DL (70-100); POTASSIUM SERUM 3.6 MEQ/L (3.5-5.1); SODIUM LEVEL 143 MEQ/L (136-145); TOTAL PROTEIN 7.6 GM/DL (6.4-8.2)
[2020-10-25 15:36] LABS: MAGNESIUM LEVEL 1.6 MG/DL (1.8-2.4)
[2020-10-25] MEDS ORDERED: HYDR-3910 PO (15:51)
[2020-10-25 16:17] VITALS: BP 123/62
== END 2020-10-25 16:19 | disposition home or self-care (01) ==
LOC: M ED 13:52
DX: F41.1 Generalized anxiety disorder (principal); Z86.19 Personal history of other infectious and parasitic diseases; F17.200 Nicotine dependence, unspecified, uncomplicated; Z88.2 Allergy status to sulfonamides
CPT/HCPCS: 80048; 80076; 82077; 83735; 85027; 96361; 96374; 96375; 99284; J2060; J2765

== ENCOUNTER 2025-03-30 11:01 | Emergency (ER) | payer OTHER ==
[~2025-03-30] VITALS: Ht 180.3 cm; Wt 55.4 kg
[~2025-03-30 11:01] MED LIST changes: +CEPH500C PO; +DOXY-441 PO; -DOXY100C37 PO; -ESSE250T PO; +HYDR25TA87 PO; +MAGN250T17 PO
[2025-03-30] MEDS: ACETAMINOPHEN *IV* 1,000 MG in IV 1 EA IV ONE (12:00)
[2025-03-30] MEDS: NS (Normal Saline) 0.9% 1,000 ML IV ONE (12:00)
[2025-03-30] MEDS: ONDANSETRON 4MG 2ML VIAL IV ONE (12:00)
[2025-03-30 12:17] LABS: BASO # 0.1 10^3/uL (0.0-0.2); BASO % 0.9 % (0.0-1.0); EOS # 0.1 10^3/uL (0.0-0.5); EOS % 1.4 % (0.0-3.0); LYMPH # 1.4 10^3/uL (1.5-5.0); LYMPH % 17.5 % (24.0-44.0); MONO # 0.4 10^3/uL (0.0-0.8); MONO % 4.7 % (2.0-8.0); NEUTROPHILS # 5.9 10^3/uL (1.5-8.5); NEUTROPHILS % 75.2 % (36.0-66.0); PLATELET COUNT, AUTOMATED 233 10^3/uL (150-450)
[2025-03-30 12:44] LABS: ALT/SGPT 21 U/L (7.0-40); AST/SGOT 23 U/L (<34); CALCIUM LEVEL 9.1 MG/DL (8.5-10.1); CARBON DIOXIDE LEVEL 30 MMOL/L (20-31); CHLORIDE LEVEL 102 MMOL/L (98-107); CREATININE FOR GFR 0.78 MG/DL (0.70-1.30); GLOMERULAR FILTRATION RATE > 90.0 (>60); POTASSIUM SERUM 4.2 MMOL/L (3.5-5.1); SODIUM LEVEL 141 MMOL/L (136-145)
[2025-03-30 13:33] VITALS: TEMP 97.2
[2025-03-30 13:51] LABS: ETHYL ALCOHOL (ETHANOL) < 0.003 % (0.000-0.010)
[2025-03-30 13:52] LABS: SALICYLATE LEVEL < 3.0 MG/DL (<30)
[2025-03-30] MEDS ORDERED: ACET-1349 PO (13:54)
[2025-03-30] MEDS ORDERED: HOME MED LIST COMPLETE! XX SCH (13:55)
[2025-03-30 14:04] LABS: ALT/SGPT 18 U/L (7.0-40); AST/SGOT 19 U/L (<34); CPK CREATINE PHOSPHOKINASE 39 U/L (46-171)
[2025-03-30 14:29] LABS: CPK CREATINE PHOSPHOKINASE 36 U/L (46-171)
[2025-03-30 15:10] LABS: BARBITURATES URINE NEGATIVE (NEGATIVE); BENZODIAZEPINES URINE NEGATIVE (NEGATIVE); METHADONE URINE NEGATIVE (NEGATIVE); OPIATES URINE NEGATIVE (NEGATIVE); PHENCYCLIDINE URINE NEGATIVE (NEGATIVE)
[2025-03-30 15:18] LABS: AMPHETAMINES LEVEL URINE POSITIVE (NEGATIVE); CANNABINOIDS URINE POSITIVE (NEGATIVE); COCAINE METABOLITE URINE POSITIVE (NEGATIVE)
[2025-03-30 16:41] LABS: ALT/SGPT 19.0 U/L (7.0-40); AST/SGOT 18.0 U/L (<34); CPK CREATINE PHOSPHOKINASE 39.0 U/L (46-171)
[2025-03-30 17:15] VITALS: BP 116/68; O2SAT 99
[2025-04-02 20:22] LABS: LYME TOTAL ANTIBODY CIA <= 0.90 Index (<=0.90)
[2025-04-03 22:22] LABS: BABESIA MICROTI PCR Not Detected (Not Detected)
== END 2025-03-30 17:45 | disposition home or self-care (01) ==
LOC: M ED 11:01
DX: M25.50 Pain in unspecified joint (principal); R53.83 Other fatigue; K50.919 Crohn's disease, unspecified, with unspecified complications; G89.29 Other chronic pain; M54.9 Dorsalgia, unspecified; Z88.2 Allergy status to sulfonamides
CPT/HCPCS: 71045; 73030; 80048; 80076; 80143; 80307; 82077; 82550; 83605; 84443; 85025; 86618; 87469; 87486; 87581; 87633; 87798; 93005; 93041; 94760; 96374; 96375; 99285; J0131; J2405